=== PATIENT | female | born 1945 | race Caucasian/White ===

== ENCOUNTER 2016-11-21 05:24 | Inpatient (IN) | payer MEDICARE ==
[~2016-11-21] VITALS: Ht 167.6 cm; Wt 125.0 kg
[2016-11-21] VITALS (15 sets, daily range): BP systolic 111–205; BP diastolic 60–90; PULSE 83–95; RESP 16–20; TEMP 96.8–98.8; O2SAT 94–98
[2016-11-21] MEDS ORDERED: SODIUM CHLOR 0.9% 1000 ML INJ 1,000 ML IV SCH (05:41)
[2016-11-21] MEDS ORDERED: POLY3350 PO (05:43)
[2016-11-21] MEDS ORDERED: PRED2.5T PO (05:43)
[2016-11-21] MEDS ORDERED: LIPI40TA PO (05:43)
[2016-11-21] MEDS ORDERED: NABU1TAB37 PO (05:43)
[2016-11-21] MEDS ORDERED: LISI-590 PO (05:43)
[2016-11-21] MEDS ORDERED: ACTO15TA11 PO (05:43)
[2016-11-21] MEDS ORDERED: PRIL20CA9 PO (05:43)
[2016-11-21] MEDS ORDERED: DILT120T PO (05:43)
[2016-11-21] MEDS ORDERED: CLOB0.77 TOPICAL (05:43)
[2016-11-21] MEDS ORDERED: SULF500T3 PO (05:43)
[2016-11-21] MEDS ORDERED: OXYB5TAB10 PO (05:43)
[2016-11-21] MEDS ORDERED: CALC500T35 PO (05:43)
[2016-11-21] MEDS ORDERED: FLUT1SPR5 EACH NARE (05:43)
[2016-11-21] MEDS ORDERED: UNIS25TA2 PO (05:43)
[2016-11-21] MEDS ORDERED: GLUC15009 PO (05:43)
[2016-11-21] MEDS ORDERED: SODIUM CHLORIDE 0.9% FLUSH 5 ML FLUSH IVF PRN (05:45)
--- NOTE | 2016-11-21 06:11 | PD ---
HPI Chief Complaint: GI Complaint Time Seen by Provider: 05:41 Travel History International Travel<30 days: No Contact w/Intl Traveler<30days: No Traveled to known affect area: No History of Present Illness HPI This 71-year-old woman who presents emergency department complaining that she woke up yesterday morning authorization specialist around 2 AM with abdominal pain. States since that time the pain is been constant. She's had nausea with some vomiting as well. She states feels similar to when she had "twisted intestines " many years ago. At that point resolve spontaneously and did not require surgery. She has not had a bowel movement for 2 days but prior to that her bowel movements are normal without evidence of constipation. She has had chills but no definite fever. States otherwise she's been feeling generally well and healthy prior to the onset of these symptoms. She does take prednisone for rheumatoid arthritis. History Past Medical History Narrative Medical SVT Diabetes Hypertension Rheumatoid arthritis Tetanus Vaccination: Unknown Influenza Vaccination: No Menopausal: Yes Social History Alcohol Use: No Tobacco Use: No Allergies-Medications (Allergen,Severity, Reaction): Coded Allergies: Erythromycin (Verified Allergy, Unknown, 11/21/16) Reported Meds & Prescriptions Reported Meds & Active Scripts Active Reported Actos (Pioglitazone HCl) 15 Mg Tab 15 Mg PO DAILY Zestril (Lisinopril) 10 Mg Tab 10 Mg PO DAILY Lipitor (Atorvastatin Calcium) 40 Mg Tab 40 Mg PO HS Flonase Allergy Relief Nasal Drake (Fluticasone Nasal Drake) 50 Mcg/Act Drake 50 Mcg EACH NARE BID Ditropan (Oxybutynin Chloride) 5 Mg Tab 10 Mg PO DAILY Diltiazem (Diltiazem HCl) 120 Mg Tab 240 Mg PO DAILY Sulfasalazine 500 Mg Tab 500 Mg PO BID Nabumetone 500 Mg Tab 500 Mg PO BID Prednisone 2.5 Mg Tab 2.5 Mg PO BID Clobetasol Topical (Clobetasol Propionate) 0.05% Drake 1 Applic TOPICAL BID Prilosec (Omeprazole) 20 Mg Cap 20 Mg PO DAILY Glucosamine 1,500 Mg Tab 1,500 Mg PO DAILY Polyethylene Glycol 3350 1 Pow Pow 1 Pack PO DAILY PRN Calcium (Oyster Shell) 500 Mg Tab 500 Mg PO BID Unisom (Doxylamine Succinate (Sleep)) 25 Mg Tab 25 Mg PO HS PRN Review of Systems Except as stated in HPI: all other systems reviewed are Neg Physical Exam Narrative GENERAL: Well-appearing 71-year-old woman, no acute distress. SKIN: Warm and dry. HEAD: Atraumatic. Normocephalic. CARDIOVASCULAR: Regular rate and rhythm. No murmur appreciated. RESPIRATORY: No accessory muscle use. Clear to auscultation. Breath sounds equal bilaterally. GASTROINTESTINAL: Abdomen is obese, soft. There is a easily reducible ventral hernia without significant tenderness. Some old midline scarring. No significant distention. Minimal diffuse tenderness. MUSCULOSKELETAL: No obvious deformities. No edema. NEUROLOGICAL: Awake and alert. No obvious cranial nerve deficits. Motor grossly within normal limits. Normal speech. PSYCHIATRIC: Appropriate mood and affect; insight and judgment normal. Data Data Last Documented VS Vital Signs Date Time Temp Pulse Resp B/P Pulse Ox O2 Delivery O2 Flow Rate FiO2 11/21/16 06:39 84 16 130/60 96 Room Air 11/21/16 05:25 98.1 Orders Complete Blood Count With Diff (11/21/16 05:41) Comprehensive Metabolic Panel (11/21/16 05:41) Lactic Acid (11/21/16 05:41) Urinalysis - C+S If Indicated (11/21/16 05:41) Ct Abd/Pel W Iv Contrast(Rout) (11/21/16 05:41) Iv Access Insert/Monitor (11/21/16 05:41) Ecg Monitoring (11/21/16 05:41) Oximetry (11/21/16 05:41) NPO (11/21/16 05:41) Sodium Chlor 0.9% 1000 Ml Inj (Ns 1000 M (11/21/16 05:41) Sodium Chloride 0.9% Flush (Ns Flush) (11/21/16 05:45) Labs Laboratory Tests Test 11/21/16 05:53 Sodium Level 135 MEQ/L Potassium Level 4.5 MEQ/L Chloride Level 99 MEQ/L Carbon Dioxide Level 24.7 MEQ/L Anion Gap 11 MEQ/L Blood Urea Nitrogen 21 MG/DL Creatinine 1.05 MG/DL Estimat Glomerular Filtration 52 ML/MIN Rate Random Glucose 201 MG/DL Lactic Acid Level 2.6 mmol/L Calcium Level 10.3 MG/DL Total Bilirubin 0.7 MG/DL Aspartate Amino Transf 25 U/L (AST/SGOT) Alanine Aminotransferase 18 U/L (ALT/SGPT) Alkaline Phosphatase 88 U/L Total Protein 7.7 GM/DL Albumin 3.7 GM/DL MDM Medical Decision Making Medical Screen Exam Complete: Yes Emergency Medical Condition: Yes Differential Diagnosis Obstruction, volvulus, diverticulitis, cholecystitis, other Narrative Course Medical decision making INITIAL: Is a 71-year-old woman who presents to the emergency department with abdominal pain for about 24 hours now, constant, with some retching. She appears otherwise well. Is no obvious distention. She's had a couple major bowel surgeries in the past. She still has her appendix and gallbladder. We' ll check labs, CT imaging, reassess. Juan Ramon Sadler MD Nov 21, 2016 06:11
[2016-11-21 06:30] LABS: ANION GAP 11 MEQ/L (5-15); AST (GOT) 25 U/L (15-37); BICARBONATE 24.7 MEQ/L (21.0-32.0); BLOOD UREA NITROGEN 21 MG/DL (7-18); CHLORIDE 99 MEQ/L (98-107); GLOMERULAR FILTRATION RATE 52 ML/MIN (>89); SODIUM (NA) 135 MEQ/L (136-145)
[2016-11-21 06:37] LABS: POTASSIUM 4.5 MEQ/L (3.5-5.1)
[2016-11-21 06:38] LABS: ALKALINE PHOSPHATASE 88 U/L (45-117); ALT (GPT) 18 U/L (10-53); TOTAL BILIRUBIN ADULT 0.7 MG/DL (0.2-1.0)
[2016-11-21 06:52] LABS: AUTOMATED NEUTROPHIL # 13.1 TH/MM3 (1.8-7.7); BASOPHIL % 0.3 % (0.0-2.0); EOSINOPHIL % 0.1 % (0.0-4.0); HEMATOCRIT 44.4 % (35.0-46.0); LYMPH % 7.5 % (9.0-44.0); LYMPHOCYTE # 1.2 TH/MM3 (1.0-4.8); MEAN CELL VOLUME 91.8 FL (80.0-100.0); MEAN CORPUSCULAR HEMOGLOBIN 32.5 PG (27.0-34.0); MEAN CORPUSCULAR HGB CONC 35.4 % (32.0-36.0); MONO % 6.8 % (0.0-8.0); NEUT % 85.3 % (16.0-70.0); PLATELET COUNT 348 TH/MM3 (150-450); RED BLOOD COUNT 4.84 MIL/MM3 (4.00-5.30); RED CELL DISTRIBUTION WIDTH 13.9 % (11.6-17.2); WHITE BLOOD COUNT 15.3 TH/MM3 (4.0-11.0)
[2016-11-21] MEDS ORDERED: IOHEXOL 350 MG/ML 10 ML VIAL (for RAD DIAG) IV ONE (07:00)
[2016-11-21 07:15] LABS: HEMO FLAGS AUTO DIFF
--- NOTE | 2016-11-21 07:19 | RADRPT ---
EXAM DATE/TIME: 11/21/2016 06:54 [facility] COMPARISON: No previous studies available for comparison. INDICATIONS : Abdomen pain, hernia. IV CONTRAST: 97 cc Omnipaque 350 (iohexol) IV ORAL CONTRAST: No oral contrast ingested. RADIATION DOSE: 22.62 CTDIvol (mGy) MEDICAL HISTORY : Diabetes mellitus type 2. SURGICAL HISTORY : None. ENCOUNTER: Initial ACUITY: 1 day PAIN SCALE: 6/10 LOCATION: Abdomen TECHNIQUE: Volumetric scanning of the abdomen and pelvis was performed. Using automated exposure control and ad justment of the mA and/or kV according to patient size, radiation dose was kept as low as reasonably achievable to obtain optimal diagnostic quality images. FINDINGS: LOWER LUNGS: The visualized lower lungs are clear. LIVER: Homogeneous density without lesion. There is fatty infiltration of the liver. There is no dilation o f the biliary tree. No calcified gallstones. SPLEEN: Normal size without lesion. PANCREAS: Within normal limits. KIDNEYS: Normal in size and shape. There is no mass, stone or hydronephrosis. 4.2 cm right renal cyst. 8mm le ft renal cyst. ADRENAL GLANDS: Within normal limits. VASCULAR: There is no aortic aneurysm. BOWEL/MESENTERY: There are multiple dilated loops of mid small bowel along with a midline anterior abdominal wall josé luis ia containing loops of small bowel. The distal small bowel is normal in diameter. The colon is normal in diameter. There is stool in the colon. No definite inflammatory changes are seen. There is a trac e of fluid in the pelvis. No free air is seen. ABDOMINAL WALL: Within normal limits. RETROPERITONEUM: There is no lymphadenopathy. BLADDER: No wall thickening or mass. REPRODUCTIVE: Within normal limits. INGUINAL: There is no lymphadenopathy or hernia. MUSCULOSKELETAL: Within normal limits for patient age. Bony degenerative changes. CONCLUSION: 1. There is a mid small bowel obstruction which appears to be related to an anterior midline abdomina l wall hernia. This suggests an incarcerated hernia. Trace of fluid in the pelvis. No evidence of almas e air. 2. Bilateral simple appearing renal cysts. Aram Sen MD on November 21, 2016 at 7:13 Board Certified Radiologist. This report was verified electronically.
[2016-11-21] MEDS ORDERED: SODIUM CHLOR 0.9% 1000 ML INJ 1,000 ML IV ONE ×2 (07:30→08:15)
[2016-11-21] MEDS ORDERED: PIPERACIL-TAZO 4.5 GM PREMIX 100 ML IV ONE (07:30)
[2016-11-21] MEDS ORDERED: VANCOMYCIN INJ 1,000 MG in SODIUM CHLOR 0.9% 250 ML INJ 250 ML IV SCH (07:30)
[2016-11-21 07:59] LABS: SCAN/DIFF AUTO DIFF CONFIRMED
--- NOTE | 2016-11-21 08:01 | PD ---
HPI Chief Complaint: GI Complaint Time Seen by Provider: 07:06 Travel History International Travel<30 days: No Contact w/Intl Traveler<30days: No Traveled to known affect area: No History of Present Illness HPI 71-year-old female came to the emergency room brought by her with history of vomiting since 2 AM Wednesday. Patient was seen by the previous ER physician. Patient says that initially she had a bowel movement that contained of small amilcar of stool. Since then she has not had any bowel movement and not passing any gas. She right now feels very weak and dehydrated. I was asked to follow-up on the blood test and CAT scan. Patient was given a liter of IV fluid by the previous ER physician which she had finished getting when I arrived. CAT scan report was back and was suggestive of small bowel obstruction from a possible incarcerated hernia. Patient said that she did know of an umbilicus hernia that she had which actually is a ventral hernia. She says she's not been having any pain there and she is able to reduce it. When I manipulated the hernia it was very easy to be reduced. Patient was not in any pain when I did the procedure. Her heart rate is in the 80s and blood pressure was 143/88. She said she was feeling cold and getting chills. Her blood test shows leukocytosis with left shift and elevated lactic acid. Patient says that she has history of duodenal ulcer perforation in 2007 that required surgery. She had an episode of small bowel obstruction 10-12 years ago. She did not get nasogastric tube at that time and the obstruction reduced itself and less than a day. Patient is from [place] and all her doctors are from there as well. [facility] Past Medical History Narrative Medical List of her past medical history is reviewed from the nursing note. Arthritis: Yes Cardiovascular Problems: Yes (SVT) High Cholesterol: Yes Chest Pain: Yes Coronary Artery Disease: Yes Diabetes: Yes Patient Takes Glucophage: No Hypertension: Yes Inguinal Hernia: Yes Immunizations Current: Yes Tetanus Vaccination: Unknown Influenza Vaccination: No ?: Not Menopausal: Yes Past Surgical History Abdominal Surgery: Yes Hysterectomy: Yes Other Surgery: Yes (bowel resection) Social History Alcohol Use: No Tobacco Use: No Substance Use: No Allergies-Medications (Allergen,Severity, Reaction): Coded Allergies: Erythromycin (Verified Allergy, Unknown, 11/21/16) Comments List of her allergies reviewed from the nursing note. Reported Meds & Prescriptions Reported Meds & Active Scripts Active Reported Actos (Pioglitazone HCl) 15 Mg Tab 15 Mg PO DAILY Zestril (Lisinopril) 10 Mg Tab 10 Mg PO DAILY Lipitor (Atorvastatin Calcium) 40 Mg Tab 40 Mg PO HS Flonase Allergy Relief Nasal Parrish (Fluticasone Nasal Parrish) 50 Mcg/Act Parrish 50 Mcg EACH NARE BID Diltiazem (Diltiazem HCl) 120 Mg Tab 240 Mg PO DAILY Sulfasalazine 500 Mg Tab 500 Mg PO BID Nabumetone 500 Mg Tab 500 Mg PO BID Prednisone 2.5 Mg Tab 2.5 Mg PO BID Clobetasol Topical (Clobetasol Propionate) 0.05% Parrish 1 Applic TOPICAL BID Prilosec (Omeprazole) 20 Mg Cap 20 Mg PO DAILY Glucosamine 1,500 Mg Tab 1,500 Mg PO DAILY Polyethylene Glycol 3350 1 Pow Pow 1 Pack PO DAILY PRN Calcium (Oyster Shell) 500 Mg Tab 500 Mg PO BID Narrative Medication List of her home medications reviewed from the nursing note. Review of Systems Except as stated in HPI: all other systems reviewed are Neg Physical Exam Narrative GENERAL: Awake, alert, obese, moderate distress SKIN: Warm and dry. HEAD: Atraumatic. Normocephalic. EYES: Pupils equal and round. No scleral icterus. No injection or drainage. ENT: No nasal bleeding or discharge. Dry mucous membrane. NECK: Trachea midline. No JVD. CARDIOVASCULAR: Regular rate and rhythm. No murmur appreciated. RESPIRATORY: No accessory muscle use. Clear to auscultation. Breath sounds equal bilaterally. GASTROINTESTINAL: Abdomen soft, and nondistended. Large ventral hernia that is easily reducible and nontender. Hepatic and splenic margins not palpable. MUSCULOSKELETAL: No obvious deformities. No clubbing. No cyanosis. No edema. NEUROLOGICAL: Awake and alert. No obvious cranial nerve deficits. Motor grossly within normal limits. Normal speech. PSYCHIATRIC: Appropriate mood and affect; insight and judgment normal. Data Data Last Documented VS Vital Signs Date Time Temp Pulse Resp B/P Pulse Ox O2 Delivery O2 Flow Rate FiO2 11/21/16 07:55 92 16 149/90 97 Room Air 11/21/16 05:25 98.1 Orders Complete Blood Count With Diff (11/21/16 05:41) Comprehensive Metabolic Panel (11/21/16 05:41) Lactic Acid (1/28/17 05:41) Urinalysis - C+S If Indicated (11/21/16 05:41) Ct Abd/Pel W Iv Contrast(Rout) (11/21/16 05:41) Iv Access Insert/Monitor (11/21/16 05:41) Ecg Monitoring (11/21/16 05:41) Oximetry (11/21/16 05:41) NPO (11/21/16 05:41) Sodium Chlor 0.9% 1000 Ml Inj (Ns 1000 M (11/21/16 05:41) Sodium Chloride 0.9% Flush (Ns Flush) (11/21/16 05:45) Iohexol 350 Inj (Omnipaque 350 Inj) (11/21/16 07:00) Sodium Chlor 0.9% 1000 Ml Inj (Ns 1000 M (11/21/16 07:30) Nora-Gastric Tube Insert/Mon (11/21/16 07:28) Blood Culture (11/21/16 07:28) Piperacil-Tazo 4.5 Gm Premix (Zosyn 4.5 (11/21/16 07:30) Vancomycin Inj (Vancomycin Inj) (11/21/16 07:30) Director Group Sales / Telemetry JANET.Q8H (11/21/16 07:28) Diet Npo (11/21/16 Breakfast) Sodium Chlor 0.9% 1000 Ml Inj (Ns 1000 M (11/21/16 08:15) Chest, Single Ap (11/21/16 ) Admit To Inpatient (11/21/16 ) Vital Signs (Adult) Q4H (11/21/16 08:17) Activity Oob Ad Connie (11/21/16 08:17) Bedside Glucose JANET.AC&HS (11/21/16 08:17) Intake + Output JANET.QSHIFT (11/21/16 08:17) Sodium Chlor 0.9% 1000 Ml Inj (Ns 1000 M (11/21/16 09:00) Sodium Chloride 0.9% Flush (Ns Flush) (11/21/16 08:30) Sodium Chloride 0.9% Flush (Ns Flush) (11/21/16 09:00) Ondansetron Inj (Zofran Inj) (11/21/16 08:30) Prochlorperazine Supp (Compazine Supp) (11/21/16 08:30) Bisacodyl Supp (Dulcolax Supp) (11/21/16 08:30) Magnesium Hydroxide Liq (Milk Of Magnesi (11/21/16 08:30) Sennosides (Senokot) (11/21/16 08:30) Basic Metabolic Panel (Bmp) (11/22/16 06:00) Complete Blood Count With Diff (11/22/16 06:00) Pt Request For Service (11/21/16 08:17) Case Management Consult (11/21/16 08:17) Heparin Inj (Heparin Inj) (11/21/16 09:00) Scd Bilateral/Knee High JANET.BID (11/21/16 08:17) Naloxone Inj (Narcan Inj) (11/21/16 08:30) Inpatient Certification (11/21/16 ) Admit Order (Ed Use Only) (11/21/16 08:17) Labs Laboratory Tests Test 11/21/16 11/21/16 11/21/16 05:53 06:22 07:40 Sodium Level 135 MEQ/L Potassium Level 4.5 MEQ/L Chloride Level 99 MEQ/L Carbon Dioxide Level 24.7 MEQ/L Anion Gap 11 MEQ/L Blood Urea Nitrogen 21 MG/DL Creatinine 1.05 MG/DL Estimat Glomerular Filtration 52 ML/MIN Rate Random Glucose 201 MG/DL Lactic Acid Level 2.6 mmol/L Calcium Level 10.3 MG/DL Total Bilirubin 0.7 MG/DL Aspartate Amino Transf 25 U/L (AST/SGOT) Alanine Aminotransferase 18 U/L (ALT/SGPT) Alkaline Phosphatase 88 U/L Total Protein 7.7 GM/DL Albumin 3.7 GM/DL White Blood Count 15.3 TH/MM3 Red Blood Count 4.84 MIL/MM3 Hemoglobin 15.7 GM/DL Hematocrit 44.4 % Mean Corpuscular Volume 91.8 FL Mean Corpuscular Hemoglobin 32.5 PG Mean Corpuscular Hemoglobin 35.4 % Concent Red Cell Distribution Width 13.9 % Platelet Count 348 TH/MM3 Mean Platelet Volume 10.3 FL Neutrophils (%) (Auto) 85.3 % Lymphocytes (%) (Auto) 7.5 % Monocytes (%) (Auto) 6.8 % Eosinophils (%) (Auto) 0.1 % Basophils (%) (Auto) 0.3 % Neutrophils # (Auto) 13.1 TH/MM3 Lymphocytes # (Auto) 1.2 TH/MM3 Monocytes # (Auto) 1.0 TH/MM3 Eosinophils # (Auto) 0.0 TH/MM3 Basophils # (Auto) 0.0 TH/MM3 CBC Comment AUTO DIFF Differential Comment AUTO DIFF CONFIRMED Urine Color YELLOW Urine Turbidity CLEAR Urine pH 7.0 Urine Specific [place] GREATER THAN 1.050 Urine Protein 30 mg/dL Urine Glucose (UA) NEG mg/dL Urine Ketones NEG mg/dL Urine Occult Blood NEG Urine Nitrite NEG Urine Bilirubin NEG Urine Urobilinogen LESS THAN 2.0 MG/DL Urine Leukocyte Esterase NEG Urine WBC 1 /hpf Urine Squamous Epithelial 5 /hpf Cells Urine Bacteria RARE /hpf Urine Hyaline Casts 7 /lpf Urine Mucus FEW /lpf Microscopic Urinalysis Comment CULT NOT INDICATED MDM Medical Decision Making Medical Screen Exam Complete: Yes Emergency Medical Condition: Yes Medical Record Reviewed: Yes Differential Diagnosis Small bowel obstruction Narrative Course 7:59 AM patient needs to be admitted. I have ordered a second liter of IV fluid and made the patient nothing by mouth. I had the discussion with her regarding the small bowel obstruction diagnosis and requirement for nasogastric tube. Patient understands. The nurses are currently attempting to put the nasogastric tube in. Due to the leukocytosis and lactic acidosis have ordered IV antibiotic as per sepsis protocol. Blood cultures have been ordered. 8:42 AM her nurses approached me with a twelve-lead EKG which showed SVT. As per the nurse the Zosyn was just started and patient went into SVT. She has history of SVT and she immediately did a Valsalva maneuver which helped her convert back into sinus rhythm. Currently she is at the heart rate of 90s. X- ray is getting done to confirm that NG tube placement. Patient has been admitted to the hospitalist. Critical Care Narrative Aggregate critical care time was 30 minutes. Time to perform other separately billable procedures was not included in the critical care time. My time did not include minutes spent treating any other patients simultaneously or on activities that did not directly contribute to the patient's treatment. The services I provided to this patient were to treat and/or prevent clinically significant deterioration that could result in: Sepsis, sepsis protocol, small bowel obstruction I provided critical care services requiring my management, as noted below: Chart data review, documentation time, medication orders and management, vital sign assessments/reviewing monitor data, ordering and reviewing lab tests, ordering and interpreting/reviewing x-rays and diagnostic studies, care of the patient and discussion of the patient with the admitting physicians. Procedures EKG Prior to Arrival: No Diagnosis Primary Impression: Small bowel obstruction Additional Impressions: Sepsis Qualified Code: A41.9 - Sepsis, due to unspecified organism reducible ventral hernia SVT (supraventricular tachycardia) Admitting Information Admitting Physician Requests: Admit Micki Jesus MD Nov 21, 2016 08:01 Micki Jesus MD Nov 21, 2016 08:01
[2016-11-21] MEDS ORDERED: ONDANSETRON HCL 4 MG/2 ML VIAL IVP PRN (08:30)
[2016-11-21] MEDS ORDERED: NALOXONE HCL 0.4 MG/ML AMP IV PRN (08:30)
[2016-11-21] MEDS ORDERED: SODIUM CHLORIDE 0.9% FLUSH 5 ML FLUSH FLUSH PRN (08:30)
[2016-11-21] MEDS ORDERED: BISACODYL 10 MG SUPP PR PRN (08:30)
[2016-11-21] MEDS ORDERED: MAGNESIUM HYDROXIDE SUSP 30 ML CUP PO PRN (08:30)
[2016-11-21] MEDS ORDERED: PROCHLORPERAZINE 25 MG SUPP PR PRN (08:30)
[2016-11-21] MEDS ORDERED: SENNOSIDES 8.6 MG TAB PO PRN (08:30)
[2016-11-21 08:37] LABS: BACTERIA, URINE RARE /hpf; BLOOD, URINE NEG (NEG); COMMENT (UR) CULT NOT INDICATED; CULTURE IF INDICATED CULT NOT INDICATED; GLUCOSE,URINE NEG (NEG); HYALINE CAST, URINE 7 /lpf (RARE); KETONE, URINE NEG (NEG); MUCUS URINE FEW /lpf (OCC); NITRITE,URINE NEG (NEG); SQUAMOUS EPITHELIAL CELL URINE 5 /hpf (0-5); URINE COLOR YELLOW (YELLW/STRAW)
[2016-11-21] MEDS: predniSONE 5 MG TAB PO SCH ×2 (08:48→19:37)
[2016-11-21] MEDS: SODIUM CHLORIDE 0.9% FLUSH 5 ML FLUSH FLUSH SCH ×2 (08:48→19:37)
[2016-11-21] MEDS: PANTOPRAZOLE SOD 20 MG DELAYED RELEASE TAB PO SCH (08:48)
--- NOTE | 2016-11-21 09:15 | RADRPT ---
EXAM DATE/TIME: 11/21/2016 08:48 [facility] COMPARISON: No previous studies available for comparison. INDICATIONS : Patient states bowel obstruction since yesterday morning. MEDICAL HISTORY : None. SURGICAL HISTORY : Hysterectomy. ENCOUNTER: Initial ACUITY: 1 day PAIN SCORE: 0/10 LOCATION: Bilateral chest FINDINGS: A single view of the chest demonstrates the lungs to be symmetrically aerated without evidence of mas s, infiltrate or effusion. The cardiomediastinal contours are unremarkable. Osseous structures are intact. There is an NG tube in the stomach. CONCLUSION: No acute disease. Aram Sen MD on November 21, 2016 at 9:09 Board Certified Radiologist. This report was verified electronically.
[2016-11-21] MEDS ORDERED: ENALAPRILAT 1.25 MG/ML VIAL IV PUSH PRN (09:45)
[2016-11-21] MEDS: HEPARIN SODIUM - SQ 10,000 UNITS/ML VIAL SQ SCH ×2 (09:50→19:38)
[2016-11-21] MEDS ORDERED: DILTIAZEM HCL 25 MG/5 ML VIAL IV ONE (10:00)
[2016-11-21] MEDS: FLUTICASONE PROPIONATE 50 MCG/ACT 16 GM NASAL SPRAY EACH NARE SCH ×2 (10:00→19:37)
[2016-11-21] MEDS ORDERED: DILTIAZEM HCL 60 MG TAB PO ONE (12:00)
[2016-11-21] MEDS: DILTIAZEM-CD 240 MG CAP ER PO SCH (12:13)
[2016-11-21] MEDS: SODIUM CHLOR 0.9% 1000 ML INJ 1,000 ML IV SCH ×2 (14:09→19:37)
--- NOTE | 2016-11-21 19:16 | MB ---
cc: ESTHER ARGUETA MD DATE OF CONSULTATION 11/21/16 REASON FOR CONSULTATION Small bowel obstruction. HISTORY OF PRESENT ILLNESS The patient is a very pleasant 71-year-old female who came to the emergency room with a history of vomiting since 02:00 a.m. on Wednesday. The patient has had a history of small bowel obstruction x1 in the past between 1999 and 2007. She has not had any other episodes like this. She reports that she has not had a bowel movement and not passing any flatus, but does not have bowel movement every day. CT scan demonstrated a question of an incarcerated hernia, but this was easily reduced by the ER physician and by the undersigned. Patient's Past medical history significant a hysterectomy in about 1999 history, history of small bowel obstruction after this date and exploration in 2007 for a gastric ulcer perforation. The patient's previous episode of obstruction was resolved nonoperatively. PAST MEDICAL HISTORY 1. Arthritis 2. History of supraventricular tachycardiac 3. Hypercholesterolemia 4. Coronary artery disease, 5. Diabetes. 6. History of incisional hernia. PAST SURGICAL HISTORY As indicated above. SOCIAL HISTORY The patient does not smoke, drink or use other substances. ALLERGIES ERYTHROMYCIN - CAUSES FEET TO SWELL AND BLISTER MEDICATIONS 1. Actos 15 mg p.o. q. day. 2. Lisinopril 10 mg p.o. daily. 3. Lipitor 40 mg p.o. q.h.s. 4. Flonase as needed in each nare b.i.d. 5. Ditropan 5 mg p.o. daily. 6. Diltiazem 120 mg tablets 240 mg q. day, 7. Sulfasalazine 500 mg b.i.d. 8. Nabumetone 500 mg b.i.d. 9. Prednisone 2.5 mg b.i.d. 10. Clobetasol propionate 0.5% spray b.i.d., 11. Prilosec 20 mg p.o. daily, 12. Glucosamine 1500 mg daily PEG p.o. q. day as needed 13. Calcium 500 mg b.i.d. 14. Unisom 25 mg p.o. q.h.s. p.r.n. REVIEW OF SYSTEMS Negative other than as stated in HPI. PHYSICAL EXAMINATION GENERAL: An obese female in no acute distress. VITAL SIGNS: BP 180/75, pulse 88, respirations 16, 97% saturation on room air, temperature 96.8. HEENT: Sclerae anicteric. CHEST: Clear to auscultation. CARDIAC: Regular rate and rhythm. ABDOMEN: Soft, distended with a well-healed midline scar. There is a midline hernia just below the level of the umbilicus that is easily reducible. This is not painful to the patient. There are no other hernias noted. The patient has a nasogastric tube in place and there are about 400 mL of greenish drainage in the canister. EXTREMITIES: Pulses are intact. NEUROLOGIC: Exam is nonfocal. LABORATORY DATA Laboratory values demonstrate WBCs of 15.3, hemoglobin is 15.7, platelet count 348,000. Electrolytes - sodium 135, potassium 4.5, BUN 21, creatinine 1.0, glucose is 201. IMAGING STUDIES CT abdomen and pelvis demonstrate multiple dilated loops of mid small bowel along with a midline anterior abdominal wall hernia. This contains loops of small bowel. The distal small bowel is normal in diameter. ASSESSMENT Small bowel obstruction likely secondary to adhesions. PLAN Agree with a nasogastric tube, n.p.o. and IV fluids. I have discussed the findings with the patient her and possible plan of action including observation and surgery if this does not resolve. We will follow with you. MD LEO Cool/ /6:08 PM /7:00 PM
[2016-11-21] MEDS: ATORVASTATIN 40 MG TAB PO SCH (21:00)
--- NOTE | 2016-11-21 23:55 | HHI.HP ---
[facility]Staff Admission Diagnosis SBO, sepsis Diagnoses: Travel History International Travel<30 Days: No Contact w/Intl Traveler <30 Da: No Traveled to Known Affected Are: No History of Present Illness 71-year-old female with a history of SVT, diabetes, past history of duodenal resection secondary to ulcer, who on Wednesday around 2 AM began to experience crampy, nonradiating bilateral lower quadrant abdominal pain, which is worsened by movement. This has been accompanied by nausea, nonbloody vomiting, chills, however no measured fevers. She denies any diarrhea or constipation. Patient does have a periumbilical abdominal wall hernia which is readily reducible. Patient denies any chest pain or shortness of breath. no bowel movement in several days, but does not feel constipated. Review of Systems Other performed and negative except for HPI and past medical history. Past Family Social History Past Medical History Supraventricular tachycardia. Patient reports she has had supraventricular tachycardia since her teenage years. He typically manages this with Valsalva., Which is effective Diabetes Peptic ulcer disease status post duodenal resection Hyperlipidemia Allergic rhinitis Overactive bladder Chronic arthritic pain Past Surgical History Hysterectomy Partial small bowel resection for perforated duodenal ulcer Tonsillectomy Reported Medications Reported Meds & Active Scripts Active Reported Actos (Pioglitazone HCl) 15 Mg Tab 15 Mg PO DAILY Zestril (Lisinopril) 10 Mg Tab 10 Mg PO DAILY Lipitor (Atorvastatin Calcium) 40 Mg Tab 40 Mg PO HS Flonase Allergy Relief Nasal [place] (Fluticasone Nasal [place]) 50 Mcg/Act [place] 50 Mcg EACH NARE BID Ditropan (Oxybutynin Chloride) 5 Mg Tab 10 Mg PO DAILY Diltiazem (Diltiazem HCl) 120 Mg Tab 240 Mg PO DAILY Sulfasalazine 500 Mg Tab 500 Mg PO BID Nabumetone 500 Mg Tab 500 Mg PO BID Prednisone 2.5 Mg Tab 2.5 Mg PO BID Clobetasol Topical (Clobetasol Propionate) 0.05% [place] 1 Applic TOPICAL BID Prilosec (Omeprazole) 20 Mg Cap 20 Mg PO DAILY Glucosamine 1,500 Mg Tab 1,500 Mg PO DAILY Polyethylene Glycol 3350 1 Pow Pow 1 Pack PO DAILY PRN Calcium (Oyster Shell) 500 Mg Tab 500 Mg PO BID Unisom (Doxylamine Succinate (Sleep)) 25 Mg Tab 25 Mg PO HS PRN Allergies: Coded Allergies: Erythromycin (Verified Allergy, Unknown, 11/21/16) Family History Mother with diabetes mellitus, from small bowel obstruction. Father in his 70s secondary to Oat cell carcinoma Social History nonsmoker. Nondrinker. Denies any illicit drugs. Lives with . She is from [place]. Physical Exam Vital Signs Vital Signs Date Time Temp Pulse Resp B/P Pulse Ox O2 Delivery O2 Flow Rate FiO2 11/21/16 20:00 97.2 83 18 121/60 94 11/21/16 16:00 98.8 85 17 126/69 96 11/21/16 14:30 96.8 95 17 111/72 95 11/21/16 12:11 94 18 131/65 97 Room Air 11/21/16 11:36 90 18 176/79 98 Room Air 11/21/16 11:02 91 18 181/80 97 Room Air 11/21/16 10:40 88 16 180/75 97 Room Air 11/21/16 09:40 94 16 186/82 98 Room Air 11/21/16 08:30 92 18 205/82 97 Room Air 11/21/16 07:55 92 16 149/90 97 Room Air 11/21/16 07:11 89 16 183/81 98 Room Air 11/21/16 06:39 84 16 130/60 96 Room Air 11/21/16 05:43 93 20 175/77 98 Room Air 11/21/16 05:25 98.1 88 18 136/63 95 Room Air Physical Exam GENERAL: This is a well-nourished, well-developed patient, appears in mild distress.alert and oriented 3. SKIN: No rashes, ecchymoses or lesions. Cool and dry. HEAD: Atraumatic. Normocephalic. No temporal or scalp tenderness. EYES: Pupils equal round and reactive. Extraocular motions intact. No scleral icterus. No injection or drainage. ENT: Nose without bleeding, purulent drainage or septal hematoma. Throat without erythema, tonsillar hypertrophy or exudate. Uvula midline. Airway patent. NECK: Trachea midline. No JVD or lymphadenopathy. Supple, nontender, no meningeal signs. CARDIOVASCULAR: Regular rate and rhythm without murmurs, gallops, or rubs. RESPIRATORY: Clear to auscultation. Breath sounds equal bilaterally. No wheezes , rales, or rhonchi. GASTROINTESTINAL: Abdomen soft, non-tender, nondistended. No hepato-splenomegaly , or palpable masses. No guarding.reducible periumbilical hernia. MUSCULOSKELETAL: Extremities without clubbing, cyanosis, or edema. No joint tenderness, effusion, or edema noted. No calf tenderness. Negative Homans sign bilaterally. NEUROLOGICAL: Awake and alert. Cranial nerves II through XII intact. Motor and sensory grossly within normal limits. Five out of 5 muscle strength in all muscle groups. Normal speech. Laboratory Laboratory Tests Test 11/21/16 11/21/16 11/21/16 11/21/16 05:53 06:22 07:40 13:24 Sodium Level 135 Potassium Level 4.5 Chloride Level 99 Carbon Dioxide Level 24.7 Anion Gap 11 Blood Urea Nitrogen 21 Creatinine 1.05 Estimat Glomerular Filtration 52 Rate Random Glucose 201 Lactic Acid Level 2.6 1.2 Calcium Level 10.3 Total Bilirubin 0.7 Aspartate Amino Transf 25 (AST/SGOT) Alanine Aminotransferase 18 (ALT/SGPT) Alkaline Phosphatase 88 Total Protein 7.7 Albumin 3.7 White Blood Count 15.3 Red Blood Count 4.84 Hemoglobin 15.7 Hematocrit 44.4 Mean Corpuscular Volume 91.8 Mean Corpuscular Hemoglobin 32.5 Mean Corpuscular Hemoglobin 35.4 Concent Red Cell Distribution Width 13.9 Platelet Count 348 Mean Platelet Volume 10.3 Neutrophils (%) (Auto) 85.3 Lymphocytes (%) (Auto) 7.5 Monocytes (%) (Auto) 6.8 Eosinophils (%) (Auto) 0.1 Basophils (%) (Auto) 0.3 Neutrophils # (Auto) 13.1 Lymphocytes # (Auto) 1.2 Monocytes # (Auto) 1.0 Eosinophils # (Auto) 0.0 Basophils # (Auto) 0.0 CBC Comment AUTO DIFF Differential Comment AUTO DIFF CONFIRMED Urine Color YELLOW Urine Turbidity CLEAR Urine pH 7.0 Urine Specific [place] GREATER THAN 1.050 Urine Protein 30 Urine Glucose (UA) NEG Urine Ketones NEG Urine Occult Blood NEG Urine Nitrite NEG Urine Bilirubin NEG Urine Urobilinogen LESS THAN 2.0 Urine Leukocyte Esterase NEG Urine WBC 1 Urine Squamous Epithelial 5 Cells Urine Bacteria RARE Urine Hyaline Casts 7 Urine Mucus FEW Microscopic Urinalysis Comment CULT NOT INDICATED Date/Time Procedure Status Source Growth 11/21/16 08:04 Aerobic Blood Culture Received Blood Peripheral Pending 11/21/16 08:04 Anaerobic Blood Culture Received Blood Peripheral Pending Result Diagram: 11/21/16 0622 11/21/16 0553 Assessment and Plan Assessment and Plan //Small bowel obstruction On CT abdomen. -NG tube to low intermittent suction. Antiemetics as necessary. Nothing by mouth except for meds, clamping NG tube as necessary. -Avoid narcotics if possible. Minimize anticholinergics. //Supraventricular tachycardia With sinus tachycardia on exam. Patient did have episode of supraventricular tachycardia which resolved with Valsalva. -Likely exacerbated due to missing her diltiazem yesterday. -We'll start back on diltiazem. Monitor closely. //Diabetes. Chronic. Hold home medications. Insulin sliding scale. //Patient does have leukocytosis and tachycardia. Etc. doses likely secondary to vomiting. Tachycardia is likely rebound from missing her diltiazem. Lactate was elevated on admission, however improved after fluid. Likely secondary to dehydration. Has no signs of infection. We will continue to monitor. //Chronic arthritic pain. Continue home medications. //Prophylaxis. Heparin. Code Status full code. Discussed Condition With patient, nurse, 80 physician. Physician Certification 2 Midnight Certification Type: Admission for Inpatient Services Order for Inpatient Services The services are ordered in accordance with Medicare regulations or non- Medicare payer requirements, as applicable. In the case of services not specified as inpatient-only, they are appropriately provided as inpatient services in accordance with the 2-midnight benchmark. Estimated LOS (days): 3 days is the estimated time the patient will need to remain in the hospital, assuming treatment plan goals are met and no additional complications. Post-Hospital Plan: Not yet determined Allen Atkins MD Nov 21, 2016 23:55 full code. Discussed Condition With patient, nurse, 80 physician. Physician Certification 2 Midnight Certification Type: Admission for Inpatient Services Order for Inpatient Services The services are ordered in accordance with Medicare regulations or non- Medicare payer requirements, as applicable. In the case of services not specified as inpatient-only, they are appropriately provided as inpatient services in accordance with the 2-midnight benchmark. Estimated LOS (days): 3 days is the estimated time the patient will need to remain in the hospital, assuming treatment plan goals are met and no additional complications. Post-Hospital Plan: Not yet determined Allen Atkins MD Nov 21, 2016 23:55
[2016-11-22] VITALS (7 sets, daily range): BP systolic 127–153; BP diastolic 62–83; PULSE 69–111; RESP 16–18; TEMP 95.9–98.1; O2SAT 93–97
[2016-11-22] MEDS: SODIUM CHLOR 0.9% 1000 ML INJ 1,000 ML IV SCH ×3 (04:31→17:42)
[2016-11-22 05:28] LABS: BICARBONATE 26.3 MEQ/L (21.0-32.0); POTASSIUM 3.3 MEQ/L (3.5-5.1)
[2016-11-22 05:38] LABS: AUTOMATED NEUTROPHIL # 7.9 TH/MM3 (1.8-7.7); BASOPHIL % 0.5 % (0.0-2.0); EOSINOPHIL # 0.1 TH/MM3 (0-0.4); EOSINOPHIL % 1.5 % (0.0-4.0); HEMATOCRIT 38.7 % (35.0-46.0); HEMO FLAGS DIFF FINAL; LYMPH % 9.9 % (9.0-44.0); MEAN CELL VOLUME 93.3 FL (80.0-100.0); MEAN CORPUSCULAR HGB CONC 33.2 % (32.0-36.0); MONO % 7.9 % (0.0-8.0); NEUT % 80.2 % (16.0-70.0); PLATELET COUNT 231 TH/MM3 (150-450); RED BLOOD COUNT 4.15 MIL/MM3 (4.00-5.30); RED CELL DISTRIBUTION WIDTH 13.9 % (11.6-17.2); WHITE BLOOD COUNT 9.8 TH/MM3 (4.0-11.0)
[2016-11-22] MEDS: FLUTICASONE PROPIONATE 50 MCG/ACT 16 GM NASAL SPRAY EACH NARE SCH ×2 (07:58→19:34)
[2016-11-22] MEDS: PANTOPRAZOLE SOD 20 MG DELAYED RELEASE TAB PO SCH (07:59)
[2016-11-22] MEDS: SODIUM CHLORIDE 0.9% FLUSH 5 ML FLUSH FLUSH SCH ×2 (07:59→19:35)
[2016-11-22] MEDS: predniSONE 5 MG TAB PO SCH ×2 (07:59→19:36)
[2016-11-22] MEDS: DILTIAZEM-CD 240 MG CAP ER PO SCH (07:59)
[2016-11-22] MEDS: HEPARIN SODIUM - SQ 10,000 UNITS/ML VIAL SQ SCH ×2 (08:01→19:36)
--- NOTE | 2016-11-22 12:15 | EKG ---
Date Performed: 11/21/2016 Time Performed: 08:41:03 PTAGE: 71 years EKG: Sinus rhythm WITH OCCASIONAL VENTRICULAR PREMATURE COMPLEXES WITH OCCASIONAL SUPRAVENTRICULAR PREMATURE COMPLEXES NONSPECIFIC T-WAVE ABNORMALITY BORDERLINE ECG PREVIOUS TRACING : 11/21/2016 08.39 Compared to previous tracing, the rate has slowed considera prem. Nonspecific ST segment depression has improved. DOCTOR: Yasmany Cruz Interpretating Date/Time 11/22/2016 12:14:23
--- NOTE | 2016-11-22 12:26 | EKG ---
Date Performed: 11/21/2016 Time Performed: 08:39:14 PTAGE: 71 years EKG: SUPRAVENTRICULAR TACHYCARDIA NONSPECIFIC ST & T-WAVE ABNORMALITY ABNORMAL RHYTHM ECG INTERP RETATION BASED ON A DEFAULT AGE OF 40 YEARS NO PREVIOUS TRACING DOCTOR: Yasmany Cruz Interpretating Date/Time 11/22/2016 12:24:46
[2016-11-22] MEDS: POTASSIUM CHLOR 10 MEQ PREMIX 100 ML IV SCH ×3 (12:57→16:12)
[2016-11-22] MEDS ORDERED: MAGNESIUM SULFATE 1 GM PREMIX 100 ML IV ONE (13:45)
--- NOTE | 2016-11-22 18:47 | HHI.PR ---
Subjective Remarks patient seen today at around 11 AM. Says she is feeling well. No chest pain or shortness breath. Nausea has resolved. 2 bowel movements. Discussed with nursing. We'll advance to full liquids. Clamp NG tube and leave in place for now. Will remove NG tube in morning if tolerating diet. Objective Vital Signs Date Time Temp Pulse Resp B/P Pulse Ox O2 Delivery O2 Flow Rate FiO2 11/22/16 16:00 96.4 72 18 147/83 96 11/22/16 12:00 95.9 78 17 147/71 93 11/22/16 08:00 96.1 69 17 140/68 95 11/22/16 04:00 97.1 74 16 128/69 96 11/22/16 00:00 98.1 111 18 127/62 96 11/21/16 20:11 86 11/21/16 20:00 97.2 83 18 121/60 94 I/O 11/21/16 11/21/16 11/21/16 11/22/16 11/22/16 11/22/16 07:00 15:00 23:00 07:00 15:00 23:00 Intake Total 0 ml 522 ml 947 ml 1283 ml Output Total 0 ml 600 ml 400 ml 1800 ml Balance 0 ml -78 ml 547 ml -517 ml Intake Oral 0 ml 120 ml IV Total 522 ml 947 ml 1163 ml Output Urine Total 0 ml 700 ml Gastric Drainage Total 600 ml 400 ml 1100 ml # Voids 1 2 # Bowel Movements 0 0 1 2 Result Diagram: 11/22/16 0336 11/22/16 0336 Objective Remarks GENERAL: sitting up in chair. Appears comfortable. Alert and oriented 3. SKIN: Warm and dry. HEAD: Normocephalic. EYES: No scleral icterus. No injection or drainage. NECK: Supple, trachea midline. No JVD. CARDIOVASCULAR: Regular rate and rhythm without murmurs, gallops, or rubs. RESPIRATORY: Breath sounds equal bilaterally. No accessory muscle use. GASTROINTESTINAL: Abdomen soft, non-tender, nondistended. MUSCULOSKELETAL: No cyanosis, or edema. BACK: Nontender without obvious deformity. No CVA tenderness. A/P Assessment and Plan //Small bowel obstruction On CT abdomen. -NG tube to low intermittent suction. Antiemetics as necessary. Nothing by mouth except for meds, clamping NG tube as necessary. -Avoid narcotics if possible. Minimize anticholinergics. -11/22. Chest posterior balance. Nausea resolved. Gastric output is elevated as patient has been eating ice chips which have not been recorded. Clamp NG tube, advanced to full liquids. //Supraventricular tachycardia With sinus tachycardia on exam. Patient did have episode of supraventricular tachycardia which resolved with Valsalva. -Likely exacerbated due to missing her diltiazem yesterday. -We'll start back on diltiazem. Monitor closely. -Continue diltiazem. Heart rate stable. //Diabetes. Chronic. Continue to Hold home medications. Insulin sliding scale. -Continue to monitor blood sugars. //Patient does have leukocytosis and tachycardia. Etc. doses likely secondary to vomiting. Tachycardia is likely rebound from missing her diltiazem. Lactate was elevated on admission, however improved after fluid. Likely secondary to dehydration. Has no signs of infection. We will continue to monitor. //Chronic arthritic pain. Continue home medications. //Prophylaxis. Heparin. Discharge Planning tomorrow if tolerating diet. Allen Atkins MD Nov 22, 2016 18:47
[2016-11-22] MEDS: ATORVASTATIN 40 MG TAB PO SCH (19:36)
--- NOTE | 2016-11-22 22:26 | HHI.PR ---
Subjective Subjective Notes DAILY PROGRESS NOTE FOR SURGICAL ATTENDING, DR. JALEEL SHABAZZ Patient feels better Tolerating soft diet 2 bowel movements Once NG tube removed Objective Vitals/I&O Vital Signs Date Time Temp Pulse Resp B/P Pulse Ox O2 Delivery O2 Flow Rate FiO2 11/22/16 20:00 96.0 75 18 153/79 97 11/21/16 12:11 Room Air Labs Laboratory Tests Test 11/22/16 03:36 White Blood Count 9.8 Red Blood Count 4.15 Hemoglobin 12.9 Hematocrit 38.7 Mean Corpuscular Volume 93.3 Mean Corpuscular Hemoglobin 31.0 Mean Corpuscular Hemoglobin 33.2 Concent Red Cell Distribution Width 13.9 Platelet Count 231 Mean Platelet Volume 10.2 Neutrophils (%) (Auto) 80.2 Lymphocytes (%) (Auto) 9.9 Monocytes (%) (Auto) 7.9 Eosinophils (%) (Auto) 1.5 Basophils (%) (Auto) 0.5 Neutrophils # (Auto) 7.9 Lymphocytes # (Auto) 1.0 Monocytes # (Auto) 0.8 Eosinophils # (Auto) 0.1 Basophils # (Auto) 0.0 CBC Comment DIFF FINAL Differential Comment Sodium Level 142 Potassium Level 3.3 Chloride Level 108 Carbon Dioxide Level 26.3 Anion Gap 8 Blood Urea Nitrogen 15 Creatinine 0.55 Estimat Glomerular Filtration 109 Rate Random Glucose 135 Calcium Level 8.5 Magnesium Level 1.5 Date/Time Procedure Status Source Growth 11/21/16 08:04 Aerobic Blood Culture - Preliminary Resulted Blood Peripheral NO GROWTH IN 1 DAY 11/21/16 08:04 Anaerobic Blood Culture - Preliminary Resulted Blood Peripheral NO GROWTH IN 1 DAY Radiology Last Impressions Abdomen/Pelvis CT 11/21/16 0541 Signed Impressions: Service Date/Time: Monday, November 21, 2016 06:54 - CONCLUSION: 1. There is a mid small bowel obstruction which appears to be related to an anterior midline abdominal wall hernia. This suggests an incarcerated hernia. Trace of fluid in the pelvis. No evidence of free air. 2. Bilateral simple appearing renal cysts. Aram Sen MD Chest X-Ray 11/21/16 0000 Signed Impressions: Service Date/Time: Monday, November 21, 2016 08:48 - CONCLUSION: No acute disease. Aram Sen MD Abdomen: Non-distended, Non-tender, Other (incisional hernia) Extremities: No edema A/P Assessment and Plan 8-year-old female who had a findings consistent with small bowel obstruction appears to have resolved now She's tolerating diet with the NG tube clamped She's had 2 or 3 bowel movements today Okay to advance diet as tolerated remove NG tube Possible discharge tomorrow depending on clinical condition Jaleel Shabazz MD Nov 22, 2016 22:26
[2016-11-23] VITALS: BP 147/79; PULSE 69; RESP 20; TEMP 96.8; O2SAT 97
[2016-11-23 04:00] VITALS: BP 139/63; PULSE 69; RESP 18; TEMP 96.4; O2SAT 96
[2016-11-23] MEDS: SODIUM CHLOR 0.9% 1000 ML INJ 1,000 ML IV SCH (04:00)
[2016-11-23 05:23] LABS: AUTOMATED NEUTROPHIL # 5.9 TH/MM3 (1.8-7.7); BASOPHIL % 0.5 % (0.0-2.0); EOSINOPHIL # 0.4 TH/MM3 (0-0.4); EOSINOPHIL % 4.5 % (0.0-4.0); HEMATOCRIT 37.9 % (35.0-46.0); HEMO FLAGS DIFF FINAL; LYMPH % 15.6 % (9.0-44.0); LYMPHOCYTE # 1.3 TH/MM3 (1.0-4.8); MEAN CELL VOLUME 93.1 FL (80.0-100.0); MEAN CORPUSCULAR HEMOGLOBIN 30.8 PG (27.0-34.0); MEAN CORPUSCULAR HGB CONC 33.1 % (32.0-36.0); MONO % 8.2 % (0.0-8.0); NEUT % 71.2 % (16.0-70.0); PLATELET COUNT 215 TH/MM3 (150-450); RED BLOOD COUNT 4.07 MIL/MM3 (4.00-5.30); RED CELL DISTRIBUTION WIDTH 13.5 % (11.6-17.2); WHITE BLOOD COUNT 8.3 TH/MM3 (4.0-11.0)
[2016-11-23 06:01] LABS: BICARBONATE 25.4 MEQ/L (21.0-32.0); MAGNESIUM 1.6 MG/DL (1.5-2.5); POTASSIUM 3.4 MEQ/L (3.5-5.1)
[2016-11-23 08:00] VITALS: BP 162/74; PULSE 76; RESP 18; TEMP 98.6; O2SAT 97
[2016-11-23] MEDS ORDERED: POTASSIUM CHLORIDE 20 MEQ CONTROLLED RELEASE TAB PO ONE (08:00)
[2016-11-23] MEDS ORDERED: MAGNESIUM SULFATE 1 GM PREMIX 100 ML IV ONE (08:00)
[2016-11-23] MEDS ORDERED: POTASSIUM PHOSPHATE INJ 15 MMOL in SODIUM CHLORIDE 0.9% INJ 150 ML IV ONE (08:00)
--- NOTE | 2016-11-23 08:00 | HHI.PR ---
Subjective Remarks She is seen today around 10 AM. She says she feels well. Multiple bowel movements. No abdominal pain. No nausea or vomiting. Objective Vital Signs Date Time Temp Pulse Resp B/P Pulse Ox O2 Delivery O2 Flow Rate FiO2 11/23/16 04:00 96.4 69 18 139/63 96 11/23/16 00:00 96.8 69 20 147/79 97 11/22/16 20:00 96.0 75 18 153/79 97 11/22/16 19:37 79 11/22/16 16:00 96.4 72 18 147/83 96 11/22/16 12:00 95.9 78 17 147/71 93 11/22/16 08:00 96.1 69 17 140/68 95 I/O 11/22/16 11/22/16 11/22/16 11/23/16 11/23/16 11/23/16 07:00 15:00 23:00 07:00 15:00 23:00 Intake Total 947 ml 1283 ml 1333 ml 1265 ml Output Total 400 ml 1800 ml 200 ml 300 ml Balance 547 ml -517 ml 1133 ml 965 ml Intake Oral 120 ml 360 ml 240 ml IV Total 947 ml 1163 ml 973 ml 1025 ml Output Urine Total 700 ml 200 ml 300 ml Gastric Drainage Total 400 ml 1100 ml # Voids 2 # Bowel Movements 1 2 2 1 Result Diagram: 11/23/1642011/23/16420 Objective Remarks GENERAL: sitting up in bed Appears comfortable. Alert and oriented 3. SKIN: Warm and dry. HEAD: Normocephalic. NG tube is out EYES: No scleral icterus. No injection or drainage. NECK: Supple, trachea midline. No JVD. CARDIOVASCULAR: Regular rate and rhythm without murmurs, gallops, or rubs. RESPIRATORY: Breath sounds equal bilaterally. No accessory muscle use. GASTROINTESTINAL: Abdomen soft, non-tender, nondistended. MUSCULOSKELETAL: No cyanosis, or edema. BACK: Nontender without obvious deformity. No CVA tenderness. A/P Assessment and Plan === 11/23/16 Mild electrolyte disturbances. Replace magnesium. Replace phosphorus. Replace calcium. They will approve with diet. //Small bowel obstruction On CT abdomen. -NG tube to low intermittent suction. Antiemetics as necessary. Nothing by mouth except for meds, clamping NG tube as necessary. -Avoid narcotics if possible. Minimize anticholinergics. -11/22. Chest posterior balance. Nausea resolved. Gastric output is elevated as patient has been eating ice chips which have not been recorded. Clamp NG tube, advanced to full liquids. = Resolved. Multiple bowel movements. Tolerating diet. //Supraventricular tachycardia With sinus tachycardia on exam. Patient did have episode of supraventricular tachycardia which resolved with Valsalva. -Likely exacerbated due to missing her diltiazem yesterday. -We'll start back on diltiazem. Monitor closely. -Continue diltiazem. Heart rate stable. //Diabetes. Chronic. Continue to Hold home medications. Insulin sliding scale. -Continue to monitor blood sugars. //Patient does have leukocytosis and tachycardia. Etc. doses likely secondary to vomiting. Tachycardia is likely rebound from missing her diltiazem. Lactate was elevated on admission, however improved after fluid. Likely secondary to dehydration. Has no signs of infection. We will continue to monitor. = No fevers or signs of infection. //Chronic arthritic pain. Continue home medications. //Prophylaxis. Heparin. Discharge Planning Discharge today. Allen Atkins MD Nov 23, 2016 08:00 Allen Atkins MD Nov 23, 2016 08:00
[2016-11-23] MEDS: HEPARIN SODIUM - SQ 10,000 UNITS/ML VIAL SQ SCH (08:20)
[2016-11-23] MEDS: PANTOPRAZOLE SOD 20 MG DELAYED RELEASE TAB PO SCH (08:20)
[2016-11-23] MEDS: predniSONE 5 MG TAB PO SCH (08:21)
[2016-11-23] MEDS: DILTIAZEM-CD 240 MG CAP ER PO SCH (08:21)
[2016-11-23] MEDS: SODIUM CHLORIDE 0.9% FLUSH 5 ML FLUSH FLUSH SCH (08:21)
[2016-11-23] MEDS: FLUTICASONE PROPIONATE 50 MCG/ACT 16 GM NASAL SPRAY EACH NARE SCH (08:23)
--- NOTE | 2016-11-23 09:59 | HHI.PR ---
Subjective Subjective Notes Resting in bed Hungry Wants NGT out Objective Vitals/I&O Vital Signs Date Time Temp Pulse Resp B/P Pulse Ox O2 Delivery O2 Flow Rate FiO2 11/23/16 08:00 98.6 76 18 162/74 97 11/21/16 12:11 Room Air Labs Laboratory Tests Test 11/23/16 04:21 White Blood Count 8.3 Red Blood Count 4.07 Hemoglobin 12.5 Hematocrit 37.9 Mean Corpuscular Volume 93.1 Mean Corpuscular Hemoglobin 30.8 Mean Corpuscular Hemoglobin 33.1 Concent Red Cell Distribution Width 13.5 Platelet Count 215 Mean Platelet Volume 10.0 Neutrophils (%) (Auto) 71.2 Lymphocytes (%) (Auto) 15.6 Monocytes (%) (Auto) 8.2 Eosinophils (%) (Auto) 4.5 Basophils (%) (Auto) 0.5 Neutrophils # (Auto) 5.9 Lymphocytes # (Auto) 1.3 Monocytes # (Auto) 0.7 Eosinophils # (Auto) 0.4 Basophils # (Auto) 0.0 CBC Comment DIFF FINAL Differential Comment Sodium Level 141 Potassium Level 3.4 Chloride Level 108 Carbon Dioxide Level 25.4 Anion Gap 8 Blood Urea Nitrogen 7 Creatinine 0.46 Estimat Glomerular Filtration 134 Rate Random Glucose 131 Calcium Level 8.3 Phosphorus Level 2.1 Magnesium Level 1.6 Albumin 3.0 Date/Time Procedure Status Source Growth 11/21/16 08:04 Aerobic Blood Culture - Preliminary Resulted Blood Peripheral NO GROWTH IN 1 DAY 11/21/16 08:04 Anaerobic Blood Culture - Preliminary Resulted Blood Peripheral NO GROWTH IN 1 DAY Radiology Last Impressions Abdomen/Pelvis CT 11/21/16 0541 Signed Impressions: Service Date/Time: Monday, November 21, 2016 06:54 - CONCLUSION: 1. There is a mid small bowel obstruction which appears to be related to an anterior midline abdominal wall hernia. This suggests an incarcerated hernia. Trace of fluid in the pelvis. No evidence of free air. 2. Bilateral simple appearing renal cysts. Aram Sen MD Chest X-Ray 11/21/16 0000 Signed Impressions: Service Date/Time: Monday, November 21, 2016 08:48 - CONCLUSION: No acute disease. Aram Sen MD Cardiovascular: Regular Lungs: Clear Abdomen: Non-distended, Non-tender, Other (soft non tender) Extremities: No edema Narrative Exam NGT in place---clamped A/P Assessment and Plan 71 year old female with SBO; resolved -No gastric residuals from NGT -DC NGT -Advance diet -Multiple BMs -OOB and mobilize Attending Note - Dr. Moncada Tolerating diet Abdomen soft ok for d/c later today The exam, history, and the medical decision-making described in the above note were completed with the assistance of the mid-level provider. I reviewed and agree with the findings presented. I attest that I had a [id number] encounter with the patient on the same day, and personally performed and documented my assessment and findings in the medical record. Tonia Perez Nov 23, 2016 09:59 Lasha Moncada MD Nov 23, 2016 17:50
[2016-11-23 12:00] VITALS: BP 134/64; PULSE 78; RESP 17; TEMP 97.7; O2SAT 95
--- NOTE | 2016-11-23 14:19 | HHI.DS ---
Discharge Summary Admission Date Nov 21, 2016 at 08:22 Discharge Date: Nov 23, 2016 Admitting Diagnosis SBO, sepsis (1) Small bowel obstruction ICD Code: K56.69 (2) SVT (supraventricular tachycardia) ICD Code: I47.1 Procedures NG tube placement. No other invasive procedures performed. Brief History - From Admission 71-year-old female with a history of SVT, diabetes, past history of duodenal resection secondary to ulcer, who on Wednesday around 2 AM began to experience crampy, nonradiating bilateral lower quadrant abdominal pain, which is worsened by movement. This has been accompanied by nausea, nonbloody vomiting, chills, however no measured fevers. She denies any diarrhea or constipation. Patient does have a periumbilical abdominal wall hernia which is readily reducible. Patient denies any chest pain or shortness of breath. no bowel movement in several days, but does not feel constipated. Supraventricular tachycardia. Patient reports she has had supraventricular tachycardia since her teenage years. He typically manages this with Valsalva., Which is effective Diabetes Peptic ulcer disease status post duodenal resection Hyperlipidemia Allergic rhinitis Overactive bladder Chronic arthritic pain Hysterectomy Partial small bowel resection for perforated duodenal ulcer Tonsillectomy Mother with diabetes mellitus, from small bowel obstruction. Father in his 70s secondary to Oat cell carcinoma CBC/BMP: 11/23/16 0421 11/23/16 0421 Significant Findings Laboratory Tests Test 11/21/16 11/21/16 11/21/16 11/22/16 05:53 06:22 07:40 03:36 Sodium Level 135 MEQ/L (136-145) Blood Urea Nitrogen 21 MG/DL (7-18) Creatinine 1.05 MG/DL (0.50-1.00) Estimat Glomerular Filtration 52 ML/MIN (>89) Rate Random Glucose 201 MG/DL 135 MG/DL (74-106) (74-106) Lactic Acid Level 2.6 mmol/L (0.4-2.0) Calcium Level 10.3 MG/DL (8.5-10.1) White Blood Count 15.3 TH/MM3 (4.0-11.0) Hemoglobin 15.7 GM/DL (11.6-15.3) Neutrophils (%) (Auto) 85.3 % 80.2 % (16.0-70.0) (16.0-70.0) Lymphocytes (%) (Auto) 7.5 % (9.0-44.0) Neutrophils # (Auto) 13.1 TH/MM3 7.9 TH/MM3 (1.8-7.7) (1.8-7.7) Monocytes # (Auto) 1.0 TH/MM3 (0-0.9) Urine Specific [place] GREATER THAN 1.050 (1.002-1.035) Urine Protein 30 mg/dL (NEG-TRACE) Urine Bacteria RARE /hpf (NONE) Urine Mucus FEW /lpf (OCC) Potassium Level 3.3 MEQ/L (3.5-5.1) Chloride Level 108 MEQ/L (98-107) Test 11/23/16 04:21 Neutrophils (%) (Auto) 71.2 % (16.0-70.0) Monocytes (%) (Auto) 8.2 % (0.0-8.0) Eosinophils (%) (Auto) 4.5 % (0.0-4.0) Potassium Level 3.4 MEQ/L (3.5-5.1) Chloride Level 108 MEQ/L (98-107) Creatinine 0.46 MG/DL (0.50-1.00) Random Glucose 131 MG/DL (74-106) Calcium Level 8.3 MG/DL (8.5-10.1) Phosphorus Level 2.1 MG/DL (2.5-4.9) Albumin 3.0 GM/DL (3.4-5.0) Imaging Last Impressions Abdomen/Pelvis CT 11/21/16 0541 Signed Impressions: Service Date/Time: Monday, November 21, 2016 06:54 - CONCLUSION: 1. There is a mid small bowel obstruction which appears to be related to an anterior midline abdominal wall hernia. This suggests an incarcerated hernia. Trace of fluid in the pelvis. No evidence of free air. 2. Bilateral simple appearing renal cysts. Aram Sen MD Chest X-Ray 11/21/16 0000 Signed Impressions: Service Date/Time: Monday, November 21, 2016 08:48 - CONCLUSION: No acute disease. Aram Sen MD Hospital Course Patient was given IV fluids. NG tube was placed to low intermittent suction. Patient did experience an episode of SVT shortly after admission, which resolved with Valsalva; this was thought to be secondary to missing her diltiazem due to nausea. Blood pressure was elevated in the 190s systolic due to patient missing her diltiazem; this was continued by mouth during admission. General surgery was consulted due to patient's history of bowel resection the past. Mild hypokalemia, hypomagnesemia, and hypophosphatemia was replaced. Bowel obstruction spontaneously resolved, with multiple bowel movements. NG tube was clamped, with patient tolerating diet. Recommend discontinuing any unnecessary anticholinergics due to risk of constipation. Patient will stop Unisom and Ditropan. For problem-based summary for most recent progress note, please see below. === 11/23/16 Mild electrolyte disturbances. Replace magnesium. Replace phosphorus. Replace calcium. They will approve with diet. //Small bowel obstruction On CT abdomen. -NG tube to low intermittent suction. Antiemetics as necessary. Nothing by mouth except for meds, clamping NG tube as necessary. -Avoid narcotics if possible. Minimize anticholinergics. -11/22. Chest posterior balance. Nausea resolved. Gastric output is elevated as patient has been eating ice chips which have not been recorded. Clamp NG tube, advanced to full liquids. = Resolved. Multiple bowel movements. Tolerating diet. //Supraventricular tachycardia With sinus tachycardia on exam. Patient did have episode of supraventricular tachycardia which resolved with Valsalva. -Likely exacerbated due to missing her diltiazem yesterday. -We'll start back on diltiazem. Monitor closely. -Continue diltiazem. Heart rate stable. //Diabetes. Chronic. Continue to Hold home medications. Insulin sliding scale. -Continue to monitor blood sugars. //Patient does have leukocytosis and tachycardia. Etc. doses likely secondary to vomiting. Tachycardia is likely rebound from missing her diltiazem. Lactate was elevated on admission, however improved after fluid. Likely secondary to dehydration. Has no signs of infection. We will continue to monitor. = No fevers or signs of infection. //Chronic arthritic pain. Continue home medications. //Prophylaxis. Heparin. Pt Condition on Discharge: Good Discharge Disposition: Discharge Home Discharge Time: > 30 minutes Discharge Instructions DIET: Follow Instructions for: Heart Healthy Diet, Diabetic Diet Activities you can perform: Regular-No Restrictions Follow up Referrals: PCP Follow-up - 1 Week Continued Medications: Atorvastatin (Lipitor) 40 Mg Tab 40 MG PO HS Cholesterol Management #30 Ref 0 TAB Clobetasol Topical (Clobetasol Topical) 0.05% [place] 1 APPLIC TOPICAL BID #59 Ref 0 ML Diltiazem (Diltiazem) 120 Mg Tab 240 MG PO DAILY Angina #120 Ref 0 TAB Fluticasone Nasal [place] (Flonase Allergy Relief Nasal [place]) 50 Mcg/Act [place] 50 MCG EACH NARE BID Allergies #1 Ref 0 BOTTLE Glucosamine (Glucosamine) 1,500 Mg Tab 1500 MG PO DAILY Herbal Supplements Ref 0 TAB Lisinopril (Zestril) 10 Mg Tab 10 MG PO DAILY Blood Pressure Management #30 Ref 0 TAB Nabumetone (Nabumetone) 500 Mg Tab 500 MG PO BID Pain-Inflammation #60 Ref 0 TAB Omeprazole (Prilosec) 20 Mg Cap 20 MG PO DAILY #30 Ref 0 CAP Oyster Shell (Calcium) 500 Mg Tab 500 MG PO BID Pioglitazone (Actos) 15 Mg Tab 15 MG PO DAILY Blood Sugar Management #30 Ref 0 TAB Polyethylene Glycol 3350 (Polyethylene Glycol 3350) 1 Pow Pow 1 PACK PO DAILY PRN CONSTIPATION Prednisone (Prednisone) 2.5 Mg Tab 2.5 MG PO BID Ref 0 TAB Sulfasalazine (Sulfasalazine) 500 Mg Tab 500 MG PO BID #120 Ref 0 TAB Discontinued Medications: Doxylamine Succinate (Sleep) (Unisom) 25 Mg Tab 25 MG PO HS PRN INSOMNIA TAB Oxybutynin (Ditropan) 5 Mg Tab 10 MG PO DAILY Urinary Symptom Managemen #60 Ref 0 TAB Allen Atkins MD Nov 23, 2016 14:19
== END 2016-11-23 15:25 | disposition home or self-care (01) | DRG 389 ==
LOC: NEPE 05:24 → NEDA 08:22 → N07A 13:49
PROVIDERS: ADMIT Internal Medicine; ATTEND Internal Medicine
DX: K56.60 Unspecified intestinal obstruction (principal); I47.1 Supraventricular tachycardia; E11.9 Type 2 diabetes mellitus without complications; M06.9 Rheumatoid arthritis, unspecified; E78.00 Pure hypercholesterolemia, unspecified; K43.9 Ventral hernia without obstruction or gangrene; E78.5 Hyperlipidemia, unspecified; N32.81 Overactive bladder; K27.9 Peptic ulcer, site unspecified, unspecified as acute or chronic, without hemorrhage or perforation; M19.90 Unspecified osteoarthritis, unspecified site; E87.6 Hypokalemia; E83.42 Hypomagnesemia; E83.39 Other disorders of phosphorus metabolism; E86.0 Dehydration; I10 Essential (primary) hypertension; I25.10 Atherosclerotic heart disease of native coronary artery without angina pectoris; K56.5 Intestinal adhesions [bands] with obstruction (postinfection); Z87.11 Personal history of peptic ulcer disease; Z83.3 Family history of diabetes mellitus
CPT/HCPCS: 43753; 71010; 74177; 80048; 80053; 80069; 81001; 82948; 83605; 83735; 85025; 87040; 93005; 96361; 96365; J1644; J2543; J3475; J3480; J7030; J7512; Q9967

== ENCOUNTER 2017-10-28 12:32 | Observation (INO) | payer MEDICARE ==
[~2017-10-28] VITALS: Ht 167.6 cm; Wt 120.0 kg
[2017-10-28] VITALS (8 sets, daily range): BP systolic 131–160; BP diastolic 57–85; PULSE 70–78; RESP 18–20; TEMP 98–99.3; O2SAT 71–99
[~2017-10-28 12:32] MED LIST: ACTO15TA22 PO; CALC12502 PO; CLOB0.77 TOPICAL; DILT120T PO; FLUT1SPR5 EACH NARE; GLUC15009 PO; LIPI40TA PO; LISI-590 PO; NABU1TAB37 PO; POLY3350 PO; PRED2.5T PO; PRIL20CA9 PO; SULF500T3 PO
[2017-10-28] MEDS ORDERED: IOHEXOL 350 MG/ML 10 ML VIAL (for RAD DIAG) IVCONTRAST ONE (12:33)
[2017-10-28] MEDS ORDERED: SODIUM CHLORIDE 0.9% FLUSH 10 ML FLUSH IVF PRN (15:45)
[2017-10-28] MEDS ORDERED: ASPIRIN 81 MG CHEW TAB PO ONE (15:45)
--- NOTE | 2017-10-28 15:46 | PD ---
HPI Chief Complaint: Chest Pain Time Seen by Provider: 15:44 Travel History International Travel<30 days: No Contact w/Intl Traveler<30days: No History of Present Illness HPI 72-year-old female history of diabetes, hyperlipidemia, hypertension, SVT, presents with her for evaluation of chest pain. She reports that she drove down here from [place] on vacation 6 days ago. For the past 5 days she' s been having a cough. She was seen at an urgent care center and diagnosed with bronchitis and prescribed cefuroxime, albuterol inhaler, Tessalon. Today she woke up with chest pain. She describes it as a pressure substernal chest pain that radiated to the back that is reproduced with inspiration. She endorses some associated degree of dyspnea. The cough is nonproductive. She is not using [id number] medication for symptom relief. Denies abdominal pain, leg swelling, fevers or chills. No history of PE, DVT. No history of coronary artery disease. No other complaints. PFSH Past Medical History Arthritis: Yes Cardiovascular Problems: Yes (SVT) High Cholesterol: Yes Chest Pain: Yes Coronary Artery Disease: Yes Diabetes: Yes Hypertension: Yes Inguinal Hernia: Yes Immunizations Current: Yes Menopausal: Yes Past Surgical History Abdominal Surgery: Yes Hysterectomy: Yes Other Surgery: Yes (bowel resection) Social History Alcohol Use: No Tobacco Use: No Substance Use: No Allergies-Medications (Allergen,Severity, Reaction): Coded Allergies: erythromycin base (Unverified Allergy, Unknown, 10/28/17) Reported Meds & Prescriptions Reported Meds & Active Scripts Active Reported Prevacid (Lansoprazole) 30 Mg Capdr 30 Mg PO DAILY Omeprazole 20 Mg Tab 20 Mg PO DAILY Plaquenil (Hydroxychloroquine Sulfate) 200 Mg Tab 200 Mg PO BID Take with food Actos (Pioglitazone HCl) 15 Mg Tab 15 Mg PO DAILY Zestril (Lisinopril) 10 Mg Tab 10 Mg PO DAILY Lipitor (Atorvastatin Calcium) 40 Mg Tab 40 Mg PO HS Flonase Nasal [place] (Fluticasone Nasal [place]) 50 Mcg/Act [place] 50 Mcg EACH NARE BID Diltiazem (Diltiazem HCl) 120 Mg Tab 240 Mg PO DAILY Sulfasalazine 500 Mg Tab 500 Mg PO BID Nabumetone 500 Mg Tab 500 Mg PO BID Clobetasol Topical (Clobetasol Propionate) 0.05% [place] 1 Applic TOPICAL BID Glucosamine 1,500 Mg Tab 1,500 Mg PO DAILY Polyethylene Glycol 3350 1 Pow Pow 1 Pack PO DAILY PRN Calcium (Oyster Shell) 500 Mg Tab 500 Mg PO BID Review of Systems Except as stated in HPI: all other systems reviewed are Neg Physical Exam Narrative GENERAL: Pleasant well-developed well-nourished female in no acute distress resting comfortably on hospital bed. SKIN: Warm and dry. HEAD: Atraumatic. Normocephalic. EYES: Pupils equal and round. No scleral icterus. No injection or drainage. ENT: No nasal bleeding or discharge. Mucous membranes pink and moist. NECK: Trachea midline. No JVD. CARDIOVASCULAR: Regular rate and rhythm. No murmur appreciated. RESPIRATORY: No accessory muscle use. Slight wheezing noted bilaterally. Breath sounds equal bilaterally. GASTROINTESTINAL: Abdomen soft, non-tender, nondistended. Hepatic and splenic margins not palpable. MUSCULOSKELETAL: No obvious deformities. No clubbing. No cyanosis. No edema. NEUROLOGICAL: Awake and alert. No obvious cranial nerve deficits. Motor grossly within normal limits. Normal speech. PSYCHIATRIC: Appropriate mood and affect; insight and judgment normal. Data Data Last Documented VS Vital Signs Date Time Temp Pulse Resp B/P (MAP) Pulse Ox O2 Delivery O2 Flow Rate FiO2 10/28/17 18:30 78 20 156/82 (106) 99 Nasal Cannula 2.00 10/28/17 12:33 98.0 Orders Orders Electrocardiogram (10/28/17 ) Basic Metabolic Panel (Bmp) (10/28/17 15:45) Ckmb (Isoenzyme) Profile (10/28/17 15:45) Complete Blood Count With Diff (10/28/17 15:45) Magnesium (Mg) (10/28/17 15:45) Prothrombin Time / Inr (Pt) (10/28/17 15:45) Act Partial Throm Time (Ptt) (10/28/17 15:45) Troponin I (10/28/17 15:45) Chest, Single Ap (10/28/17 15:45) Ecg Monitoring (10/28/17 15:45) Bilateral Bp Monitoring (10/28/17 15:45) Iv Access Insert/Monitor (10/28/17 15:45) Oximetry (10/28/17 15:45) Oxygen Administration (10/28/17 15:45) Aspirin Chew (Aspirin Chew) (10/28/17 15:45) Sodium Chloride 0.9% Flush (Ns Flush) (10/28/17 15:45) Ct Pulmonary Angiogram (10/28/17 15:45) Albuterol-Ipratropium Neb (Duoneb Neb) (10/28/17 16:30) Iohexol 350 Inj (Omnipaque 350 Inj) (10/28/17 12:33) Admit Order (Ed Use Only) (10/28/17 19:01) Activity Bed Rest With Brp (10/28/17 19:02) Vital Signs (Adult) Q4H (10/28/17 19:02) Cardiac Rhythm .As Directed (10/28/17 19:02) Notify Dr: Other .PRN (10/28/17 19:02) Notify Parameters (10/28/17 19:02) Resp Oxygen Nasal Cannula (10/28/17 ) Ckmb (Isoenzyme) Profile (10/28/17 19:02) Ckmb (Isoenzyme) Profile (10/28/17 22:02) Troponin I (10/28/17 19:02) Troponin I (10/28/17 22:02) Electrocardiogram (10/28/17 19:02) Electrocardiogram (10/28/17 22:02) ^ Obtain (10/28/17 19:02) Sodium Chloride 0.9% Flush (Ns Flush) (10/28/17 19:15) Sodium Chloride 0.9% Flush (Ns Flush) (10/28/17 21:00) Visual Arts Teacher / Telemetry JANET.Q8H (10/28/17 19:02) Diet Heart Healthy (10/29/17 Breakfast) Npo After Midnight W/ Po Meds (10/29/17 Breakfast) Diet Heart Healthy (10/28/17 Dinner) Labs Laboratory Tests Test 10/28/17 16:25 White Blood Count 15.8 TH/MM3 Red Blood Count 4.62 MIL/MM3 Hemoglobin 14.0 GM/DL Hematocrit 42.2 % Mean Corpuscular Volume 91.3 FL Mean Corpuscular Hemoglobin 30.3 PG Mean Corpuscular Hemoglobin Concent 33.2 % Red Cell Distribution Width 14.0 % Platelet Count 336 TH/MM3 Mean Platelet Volume 9.0 FL Neutrophils (%) (Auto) 86.8 % Lymphocytes (%) (Auto) 4.4 % Monocytes (%) (Auto) 8.4 % Eosinophils (%) (Auto) 0.3 % Basophils (%) (Auto) 0.1 % Neutrophils # (Auto) 13.7 TH/MM3 Lymphocytes # (Auto) 0.7 TH/MM3 Monocytes # (Auto) 1.3 TH/MM3 Eosinophils # (Auto) 0.1 TH/MM3 Basophils # (Auto) 0.0 TH/MM3 CBC Comment DIFF FINAL Differential Comment Prothrombin Time 11.2 SEC Prothromb Time International Ratio 1.1 RATIO Activated Partial Thromboplast Time 23.6 SEC Blood Urea Nitrogen 10 MG/DL Creatinine 0.55 MG/DL Random Glucose 154 MG/DL Calcium Level 8.8 MG/DL Magnesium Level 1.6 MG/DL Sodium Level 140 MEQ/L Potassium Level 3.7 MEQ/L Chloride Level 104 MEQ/L Carbon Dioxide Level 29.8 MEQ/L Anion Gap 6 MEQ/L Estimat Glomerular Filtration Rate 109 ML/MIN Total Creatine Kinase 48 U/L Troponin I LESS THAN 0.02 NG/ML [facility] Medical Decision Making Medical Screen Exam Complete: Yes Emergency Medical Condition: Yes Medical Record Reviewed: Yes Differential Diagnosis Bronchitis, pleurisy, pericarditis, myocarditis, acute coronary syndrome, pulmonary embolism, aortic dissection Narrative Course The patient was placed on ECG monitoring pulse oximetry. A twelve-lead EKG was obtained. Plan is for basic lab work, given recent travel, pleuritic pain, CTPA has been ordered. The patient was given aspirin. Lab work is been reviewed. WBC count is 15.8. CTPA is negative. Initial set of cardiac enzymes are negative. The patient has multiple risk factors for acute coronary syndrome and, given this, the patient will be admitted to the chest pain center for serial cardiac enzymes and rule out purposes. She is agreeable. Diagnosis Primary Impression: Chest pain Admitting Information Admitting Physician Requests: Karel Stone Oct 28, 2017 15:46
[2017-10-28] MEDS ORDERED: RESP: ALBUTEROL 2.5 MG/IPRATROPIUM 0.5 MG NEB (SCH) INH ONE (16:30)
--- NOTE | 2017-10-28 16:30 | RADRPT ---
EXAM DATE/TIME: 10/28/2017 15:51 [facility] COMPARISON: CHEST SINGLE AP, November 21, 2016, 8:48. INDICATIONS : Chest pain today. MEDICAL HISTORY : Hypertension. Diabetes mellitus type II. Coronary artery disease. SURGICAL HISTORY : None. ENCOUNTER: Initial ACUITY: 1 day PAIN SCORE: 6/10 LOCATION: Bilateral chest FINDINGS: Mild cardiomegaly is noted. There is elevation of left hemidiaphragm. No focal infiltrate or pulmonar y vascular congestion is noted. Degenerative changes and scoliosis of the thoracic spine are noted. CONCLUSION: 1. No focal infiltrate or pulmonary vascular congestion. 2. Mild cardiomegaly. 3. Degenerative changes and scoliosis of the thoracic spine Kevin Phillips MD on October 28, 2017 at 16:27 Board Certified Radiologist. This report was verified electronically.
[2017-10-28] MEDS ORDERED: PLAQ200T PO (16:52)
[2017-10-28] MEDS ORDERED: PREV30CA36 PO (16:52)
[2017-10-28] MEDS ORDERED: OMEP20TA93 PO (16:52)
[2017-10-28 17:03] LABS: AUTOMATED NEUTROPHIL # 13.7 TH/MM3 (1.8-7.7); BASOPHIL % 0.1 % (0.0-2.0); EOSINOPHIL # 0.1 TH/MM3 (0-0.4); EOSINOPHIL % 0.3 % (0.0-4.0); HEMATOCRIT 42.2 % (35.0-46.0); LYMPH % 4.4 % (9.0-44.0); LYMPHOCYTE # 0.7 TH/MM3 (1.0-4.8); MEAN CELL VOLUME 91.3 FL (80.0-100.0); MEAN CORPUSCULAR HEMOGLOBIN 30.3 PG (27.0-34.0); MEAN CORPUSCULAR HGB CONC 33.2 % (32.0-36.0); MONO % 8.4 % (0.0-8.0); MONOCYTE # 1.3 TH/MM3 (0-0.9); NEUT % 86.8 % (16.0-70.0); PLATELET COUNT 336 TH/MM3 (150-450); RED BLOOD COUNT 4.62 MIL/MM3 (4.00-5.30); WHITE BLOOD COUNT 15.8 TH/MM3 (4.0-11.0)
[2017-10-28 17:21] LABS: INTERNATIONAL NORMALIZED RATIO 1.1 RATIO; PROTHROMBIN TIME - PATIENT 11.2 SEC (9.8-11.6)
[2017-10-28 17:27] LABS: BICARBONATE 29.8 MEQ/L (21.0-32.0); BLOOD UREA NITROGEN 10 MG/DL (7-18); CALCIUM 8.8 MG/DL (8.5-10.1); CHLORIDE 104 MEQ/L (98-107); CREATININE 0.55 MG/DL (0.50-1.00); GLOMERULAR FILTRATION RATE 109 ML/MIN (>89); GLUCOSE,RANDOM 154 MG/DL (74-106); MAGNESIUM 1.6 MG/DL (1.5-2.5); SODIUM (NA) 140 MEQ/L (136-145)
[2017-10-28 17:31] LABS: TROPONIN I LESS THAN 0.02 NG/ML (0.02-0.05)
--- NOTE | 2017-10-28 18:56 | RADRPT ---
EXAM DATE/TIME: 10/28/2017 18:08 [facility] COMPARISON: CHEST SINGLE AP, October 28, 2017, 15:51. INDICATIONS : Short of breath with chest pains and cough. IV CONTRAST: 54 cc Omnipaque 350 (iohexol) IV RADIATION DOSE: 10.84 CTDIvol (mGy) MEDICAL HISTORY : Hypertension. Diabetes mellitus type 2. SVT SURGICAL HISTORY : Hysterectomy. ENCOUNTER: Initial ACUITY: 1 week PAIN SCALE: 4/10 LOCATION: Bilateral chest TECHNIQUE: Volumetric scanning of the chest was performed using a pulmonary embolism protocol MIP images were re constructed. Using automated exposure control and adjustment of the mA and/or kV according to patien t size, radiation dose was kept as low as reasonably achievable to obtain optimal diagnostic quality images. DICOM format image data is available electronically for review and comparison. Follow-up recommendations for detected pulmonary nodules are based at a minimum on nodule size and pa tient risk factors according to Fleischner Society Guidelines. FINDINGS: Mild subpleural interstitial prominence identified diffusely. There is no evidence of consolidation. There is mild bronchiectasis in the lower lobes with peribronchial thickening. No pathologically enla rged lymph nodes. Trace pericardial fluid. No evidence of pulmonary embolus. Degenerative changes of the spine. CONCLUSION: No evidence of pulmonary embolism. Sheldon Levi MD on October 28, 2017 at 18:52 Board Certified Radiologist. This report was verified electronically.
[2017-10-28] MEDS ORDERED: SODIUM CHLORIDE 0.9% FLUSH 10 ML FLUSH IV FLUSH PRN (19:15)
[2017-10-28 20:40] LABS: TROPONIN I LESS THAN 0.02 NG/ML (0.02-0.05)
[2017-10-28] MEDS ORDERED: SODIUM CHLORIDE 0.9% FLUSH 10 ML FLUSH IV FLUSH SCH (21:00)
[2017-10-28 23:08] LABS: TROPONIN I LESS THAN 0.02 NG/ML (0.02-0.05)
[2017-10-29 00:47] VITALS: BP 120/56; PULSE 74; RESP 19; TEMP 98.7; O2SAT 95
[2017-10-29 05:01] VITALS: BP 128/60; PULSE 80; RESP 20; TEMP 98.4; O2SAT 95
[2017-10-29 07:00] VITALS: PULSE 75
[2017-10-29] MEDS ORDERED: RESP: ALBUTEROL 2.5 MG/IPRATROPIUM 0.5 MG NEB (PRN) INH (08:00)
[2017-10-29 08:19] VITALS: BP 124/65; PULSE 103; RESP 20; TEMP 98.6; O2SAT 80; O2SAT 94
[2017-10-29] MEDS ORDERED: REGADENOSON INJ 0.4 MG/5 ML SYR ONE (09:39)
--- NOTE | 2017-10-29 11:12 | RADRPT ---
EXAM DATE/TIME: 10/29/2017 09:09 [facility] COMPARISON: No previous studies available for comparison. INDICATIONS : Substernal chest pain. Abnormal EKG. Angina. DOSE: 35 mCi Tc99m Myoview at stress. 11 mCi Tc99m Myoview at rest. 0.4 mg Lexiscan STRESS SYMPTOMS: Short of breath. EJECTION FRACTION: > 70% MEDICAL HISTORY : Hypertension. Diabetes mellitus type 2. Hypercholesterolemia. SURGICAL HISTORY : Inguinal hernia repair. Colon resection. ENCOUNTER: Initial ACUITY: 1 day PAIN SCALE: 2/10 LOCATION: Substernal chest TECHNIQUE: The patient underwent pharmacologic stress with infusion of prescribed dose. Continuous ECG tracing was monitored during stress. Gated SPECT imaging was performed after stress and conventional SPECT i maging was performed at rest. The examination was performed on a SPECT/CT scanner, both attenuation and non-corrected datasets were reviewed. FINDINGS: DISTRIBUTION: The maximum perfused segment at stress is in the inferior wall. PERFUSION STUDY: The pattern of perfusion at stress is within normal limits. GATED STUDY: There is intact wall motion and thickening without hypokinetic or dyskinetic segments. CONCLUSION: 1. Unremarkable myocardial perfusion scan. RISK CATEGORY: Low (<1% Annual Mortality Rate) Yasmany Reynolds MD on October 29, 2017 at 11:09 Board Certified Radiologist. This report was verified electronically.
--- NOTE | 2017-10-29 11:57 | HHI.HP ---
HPI Primary Care Physician No Primary Care Physician Chief Complaint Chest pain History of Present Illness This is a 72-year-old female that presents to ED with history of diabetes, hypertension, and hyperlipidemia with a complaint of waking yesterday with chest pain lasted several hours. Since then the discomfort occurs when she takes a deep breath only. She has been little short of breath. She also states she's had a cough. He was diagnosed with bronchitis and articular center a few days ago placed on antibiotics and inhaler. The cough is nonproductive. Denies fevers or chills. She has been around sick contacts. Recently traveled from [place] with her week ago and will stay here through November. Denies calf pain or swelling. Denies history of PE or DVT. Review of Systems General: Patient denies fevers, chills recent, and recent travel HEENT: Patient denies headache, sore throat, difficulty swallowing. Cardiovascular: Has the chest discomfort as mentioned above. Denies sensation of heart beating rapidly or irregularly. No syncope. Denies diaphoresis. Respiratory: Has been short of breath. Has had a nonproductive cough. Has inspirational chest discomfort. Denies wheezing or hemoptysis. GI: Patient denies nausea, vomiting, diarrhea, abdominal pain, bloody stools. Musculoskeletal: Patient denies joint pain or edema. Denies calf pain or edema. Neurovascular: Patient denies numbness, tingling, weakness in extremities. Denies headache. Endocrine: Denies polyuria and polydipsia. Hematologic: Denies easy bruising. Skin: Denies rash or itching. Past Family Social History Allergies: Coded Allergies: erythromycin base (Unverified Allergy, Unknown, 10/28/17) Past Medical History Hypertension, hyperlipidemia, and diabetes. Past Surgical History Hysterectomy. Bowel resection. Reported Medications Reported Meds & Active Scripts Active Reported Prevacid (Lansoprazole) 30 Mg Capdr 30 Mg PO DAILY Omeprazole 20 Mg Tab 20 Mg PO DAILY Plaquenil (Hydroxychloroquine Sulfate) 200 Mg Tab 200 Mg PO BID Take with food Actos (Pioglitazone HCl) 15 Mg Tab 15 Mg PO DAILY Zestril (Lisinopril) 10 Mg Tab 10 Mg PO DAILY Lipitor (Atorvastatin Calcium) 40 Mg Tab 40 Mg PO HS Flonase Nasal [place] (Fluticasone Nasal [place]) 50 Mcg/Act [place] 50 Mcg EACH NARE BID Diltiazem (Diltiazem HCl) 120 Mg Tab 240 Mg PO DAILY Sulfasalazine 500 Mg Tab 500 Mg PO BID Nabumetone 500 Mg Tab 500 Mg PO BID Clobetasol Topical (Clobetasol Propionate) 0.05% [place] 1 Applic TOPICAL BID Glucosamine 1,500 Mg Tab 1,500 Mg PO DAILY Polyethylene Glycol 3350 1 Pow Pow 1 Pack PO DAILY PRN Calcium (Oyster Shell) 500 Mg Tab 500 Mg PO BID Active Ordered Medications Current Medications Medications (Trade) Dose Ordered Sig/Chad Route Start Time Stop Time Status Last Admin (NS Flush) 2 ml UNSCH PRN IVF 10/28/17 15:45 10/28/17 16:47 (NS Flush) 2 ml UNSCH PRN IV FLUSH 10/28/17 19:15 (NS Flush) 2 ml BID IV FLUSH 10/28/17 21:00 (Duoneb Neb) 1 ampule Q4HR NEB PRN INH 10/29/17 08:00 Family History Denies family history of CAD. Social History Nonsmoker. Denies alcohol or illicit drugs. Physical Exam Vital Signs Vital Signs Date Time Temp Pulse Resp B/P (MAP) Pulse Ox O2 Delivery O2 Flow Rate FiO2 10/29/17 08:19 98.6 103 20 124/65 (84) 80 10/29/17 05:01 98.4 80 20 128/60 (82) 95 10/29/17 00:48 Nasal Cannula 2.00 10/29/17 00:47 98.7 74 19 120/56 (77) 95 10/28/17 23:00 73 10/28/17 21:41 99.3 77 19 131/57 (81) 98 10/28/17 19:34 10/28/17 18:30 78 20 156/82 (106) 99 Nasal Cannula 2.00 10/28/17 17:30 76 18 160/85 (110) 97 Nasal Cannula 2.00 10/28/17 17:05 71 Nasal Cannula 2.00 10/28/17 16:45 94 Nasal Cannula 2.00 10/28/17 16:43 154/78 (103) 10/28/17 16:30 70 157/79 (105) 10/28/17 16:30 71 18 157/79 (105) 95 Room Air 10/28/17 16:20 98 Nasal Cannula 10/28/17 12:33 98.0 70 18 137/63 (87) 95 Room Air Physical Exam GENERAL: This is a well-nourished, well-developed patient, in no apparent distress. Patient speaks in clear complete sentences. Patient is pleasant. HEENT: Head is atraumatic and normocephalic. Neck is supple without lymphadenopathy and trachea is midline. No JVD or carotid bruits. CARDIOVASCULAR: Regular rate and rhythm without murmurs, gallops, or rubs. RESPIRATORY: Clear to auscultation. Breath sounds equal bilaterally. No wheezes , rales, or rhonchi. Chest wall is nontender. No use of accessory muscles. GASTROINTESTINAL: Abdomen is nontender, nondistended. Abdomen soft. No obvious pulsatile mass or bruit. No CVA tenderness. Strong femoral pulses bilaterally. Normal bowel sounds in all quadrants. MUSCULOSKELETAL: Patient is moving upper and lower extremities freely. No calf tenderness or edema, no Homans sign. Strong pulses in upper and lower extremities. NEUROLOGICAL: Patient is alert and oriented. Cranial nerves 2-12 are grossly intact. No focal deficits and speech is clear. SKIN: No rash and turgor is normal. Laboratory Laboratory Tests Test 10/28/17 16:25 10/28/17 19:20 10/28/17 22:30 White Blood Count 15.8 Red Blood Count 4.62 Hemoglobin 14.0 Hematocrit 42.2 Mean Corpuscular Volume 91.3 Mean Corpuscular Hemoglobin 30.3 Mean Corpuscular Hemoglobin Concent 33.2 Red Cell Distribution Width 14.0 Platelet Count 336 Mean Platelet Volume 9.0 Neutrophils (%) (Auto) 86.8 Lymphocytes (%) (Auto) 4.4 Monocytes (%) (Auto) 8.4 Eosinophils (%) (Auto) 0.3 Basophils (%) (Auto) 0.1 Neutrophils # (Auto) 13.7 Lymphocytes # (Auto) 0.7 Monocytes # (Auto) 1.3 Eosinophils # (Auto) 0.1 Basophils # (Auto) 0.0 CBC Comment DIFF FINAL Differential Comment Prothrombin Time 11.2 Prothromb Time International Ratio 1.1 Activated Partial Thromboplast Time 23.6 Blood Urea Nitrogen 10 Creatinine 0.55 Random Glucose 154 Calcium Level 8.8 Magnesium Level 1.6 Sodium Level 140 Potassium Level 3.7 Chloride Level 104 Carbon Dioxide Level 29.8 Anion Gap 6 Estimat Glomerular Filtration Rate 109 Total Creatine Kinase 48 55 46 Troponin I LESS THAN 0.02 LESS THAN 0.02 LESS THAN 0.02 Result Diagram: 10/28/17 1625 10/28/17 1625 Imaging Last 48 hours Impressions Myocardial Perfusion Scan Nuc Med 10/29/17 0000 Signed Impressions: Service Date/Time: Sunday, October 29, 2017 09:09 - CONCLUSION: 1. Unremarkable myocardial perfusion scan. RISK CATEGORY: Low (<1%% Annual Mortality Rate ) Yasmany Reynolds MD Chest X-Ray 10/28/17 1545 Signed Impressions: Service Date/Time: October 15:51 - CONCLUSION: 1. No focal infiltrate or pulmonary vascular congestion. 2. Mild cardiomegaly. 3. Degenerative changes and scoliosis of the thoracic spine Kevin Phillips MD CT Angiography 10/28/17 1545 Signed Impressions: Service Date/Time: October 18:08 - CONCLUSION: No evidence of pulmonary embolism. Sheldon Levi MD Course EKGs are sinus rhythm without significant ST segment depressions or elevations. Caprini VTE Risk Assessment Caprini VTE Risk Assessment: Mod/High Risk (score >= 2) Caprini Risk Assessment Model Point Value = 1 Point Value = 2 Point Value = 3 Point Value = 5 Age 41-60 Minor surgery BMI > 25 kg/m2 Swollen legs Varicose veins or History of unexplained or recurrent spontaneous Oral contraceptives or hormone replacement Sepsis (< 1 month) Serious lung disease, including pneumonia (< 1 month) Abnormal pulmonary function Acute myocardial infarction Congestive heart failure (< 1 month) History of inflammatory bowel disease Medical patient at bed rest Age 61-74 Arthroscopic surgery Major open surgery (> 45 min) Laparoscopic surgery (> 45 min) Malignancy Confined to bed (> 72 hours) Immobilizing plaster cast Central venous access Age >= 75 History of VTE Family history of VTE Factor V Leiden Prothrombin [id number] Lupus anticoagulant Anticardiolipin antibodies Elevated serum homocysteine Heparin-induced thrombocytopenia Other congenital or acquired thrombophilia Stroke (< 1 month) Elective arthroplasty Hip, pelvis, or leg fracture Acute spinal cord injury (< 1 month) Prophylaxis Regimen Total Risk Factor Score Risk Level Prophylaxis Regimen 0-1 Low Early ambulation 2 Moderate Order ONE of the following: *Sequential Compression Device (SCD) *Heparin 5000 units SQ BID 3-4 Higher Order ONE of the following medications: *Heparin 5000 units SQ TID *Enoxaparin/Lovenox 40 mg SQ daily (WT < 150 kg, CrCl > 30 mL/min) *Enoxaparin/Lovenox 30 mg SQ daily (WT < 150 kg, CrCl > 10-29 mL/min) *Enoxaparin/Lovenox 30 mg SQ BID (WT < 150 kg, CrCl > 30 mL/min) AND/OR *Sequential Compression Device (SCD) 5 or more Highest Order ONE of the following medications: *Heparin 5000 units SQ TID (Preferred with Epidurals) *Enoxaparin/Lovenox 40 mg SQ daily (WT < 150 kg, CrCl > 30 mL/min) *Enoxaparin/Lovenox 30 mg SQ daily (WT < 150 kg, CrCl > 10-29 mL/min) *Enoxaparin/Lovenox 30 mg SQ BID (WT < 150 kg, CrCl > 30 mL/min) AND *Sequential Compression Device (SCD) Assessment and Plan Assessment and Plan * Chest pain: Patient has had serial cardiac enzymes and EKGs for ruling out purposes. She was seen by Dr. Patel cardiology and the chest pain center and had requested Lexiscan. The stress test came back is nonischemic and low risk factor. Patient also will be discharged home at this time with instructions to follow-up with PCP and return to ED for interval issues. * Bronchitis: Continue her medications. Recheck with PCP. * Hypertension: Continue current medication. * Hyperlipidemia: Continue current medication. * Diabetes: Patient will be on sliding scale insulin coverage while in the chest pain center. Resume medication at discharge. Follow diabetic diet. Patient is stable this time. She is agreeable to this plan. Giacomo Edwards Oct 29, 2017 11:57
[2017-10-29] MEDS ORDERED: LISINOPRIL 10 MG TAB PO SCH (12:00)
[2017-10-29] MEDS ORDERED: DILTIAZEM HCL 60 MG TAB PO SCH (12:15)
[2017-10-29] MEDS ORDERED: PANTOPRAZOLE SOD 40 MG DELAYED RELEASE TAB PO SCH (12:15)
[2017-10-29] MEDS ORDERED: GLUCAGON 1 MG/ML VIAL OTHER PRN (12:15)
[2017-10-29] MEDS ORDERED: DEXTROSE 50% IN WATER 50 ML VIAL(D50) IV PUSH PRN (12:15)
[2017-10-29 12:34] VITALS: BP 144/78; PULSE 100; RESP 18; TEMP 98.2; O2SAT 96
[2017-10-29] MEDS ORDERED: BENZ1CAP54 PO (12:34)
[2017-10-29] MEDS ORDERED: CEFU1TAB20 PO (12:34)
[2017-10-29] MEDS ORDERED: ALBUAER3 INH (12:35)
--- NOTE | 2017-10-29 12:36 | HHI.DCPOC ---
Discharge Care Plan Diagnosis: (1) Chest pain (2) Bronchitis (3) Hypertension (4) Hyperlipidemia Goals to Promote Your Health * To prevent worsening of your condition and complications * To maintain your health at the optimal level Directions to Meet Your Goals Take your medications as prescribed Follow your dietary instruction Follow activity as directed Keep your appointments as scheduled Take your immunizations and boosters as scheduled If your symptoms worsen call your PCP, if no PCP go to Urgent Care Center or Emergency Room Smoking is Dangerous to Your Health. Avoid second hand smoke Call the 24-hour hour crisis hotline for domestic abuse at Giacomo Edwards Oct 29, 2017 12:36
[2017-10-29] MEDS ORDERED: INSULIN ASPART SUPPLEMENTAL SCALE SQ SCH (17:00)
[2017-10-29] MEDS ORDERED: ATORVASTATIN 40 MG TAB PO SCH (21:00)
--- NOTE | 2017-10-29 22:07 | TR ---
Date Performed: 10/29/2017 Time Performed: 09:45:32 DOCTOR: Paula Patel DRUG LIST: CLINICAL HISTORY: REASON FOR TEST: Angina REASON FOR ENDING: OBSERVATION: CONCLUSION: Lexiscan stress test was performed under standard four minute protocol. Radionuclid e was injected one minute prior to ending the test. No electrocardiographic abormalities were present to suggest ischemia. Nuclear imaging and interpretation are pending. COMMENTS:
--- NOTE | 2017-10-29 22:14 | EKG ---
Date Performed: 10/28/2017 Time Performed: 12:44:41 PTAGE: 72 years EKG: Sinus rhythm NORMAL ECG Since PREVIOUS TRACING , no significant change noted PREVIOUS TRACIN11/21/2016 08.41 DOCTOR: Paula Patel Interpretating Date/Time 10/29/2017 22:13:08
--- NOTE | 2017-10-29 22:15 | EKG ---
Date Performed: 10/28/2017 Time Performed: 19:17:20 PTAGE: 72 years EKG: Sinus rhythm NORMAL ECG Since PREVIOUS TRACING , no significant change noted PREVIOUS TRACIN10/28/2017 12.44 DOCTOR: Paula Patel Interpretating Date/Time 10/29/2017 22:14:40
--- NOTE | 2017-10-29 22:21 | EKG ---
Date Performed: 10/28/2017 Time Performed: 23:16:48 PTAGE: 72 years EKG: Sinus rhythm NORMAL ECG Since PREVIOUS TRACING , no significant change noted PREVIOUS TRACIN10/28/2017 19.17 DOCTOR: Paula Patel Interpretating Date/Time 10/29/2017 22:18:57
== END 2017-10-29 16:22 | disposition home or self-care (01) ==
LOC: NEPE 12:32 → NEDA 19:03 → NEPFCDU 19:32
PROVIDERS: ADMIT Internal Medicine Cardiovascular Disease; ATTEND Internal Medicine Cardiovascular Disease
DX: R07.9 Chest pain, unspecified (principal); J40 Bronchitis, not specified as acute or chronic; I10 Essential (primary) hypertension; I25.10 Atherosclerotic heart disease of native coronary artery without angina pectoris; I51.7 Cardiomegaly; E78.5 Hyperlipidemia, unspecified; E11.9 Type 2 diabetes mellitus without complications; M41.9 Scoliosis, unspecified; Z90.710 Acquired absence of both cervix and uterus
CPT/HCPCS: 71045; 71275; 78452; 80048; 82550; 83735; 84484; 85025; 85610; 85730; 93005; 93017; 94664; 99285; A9502; G0378; J2785; Q9967